=== PATIENT | male | born 1950 | race Caucasian/White ===

== ENCOUNTER 2017-11-15 19:02 | Inpatient (IN) ==
[2017-11-15] MEDS ORDERED: 0.9 % Sodium Chloride 500 ML IVC ONE (19:44)
--- NOTE | 2017-11-15 19:47 | Emergency Department Note ---
Disposition Clinical Impression: Chest pain Qualifiers: Chest pain type: unspecified Qualified Code(s): R07.9 - Chest pain, unspecified Congestive heart failure Qualifiers: Heart failure type: unspecified Heart failure chronicity: unspecified Qualified Code(s): I50.9 - Heart failure, unspecified Disposition: Admitted As Inpatient Condition: Fair Time of Disposition: 21:48 General Adult HPI - General Stated complaint: IVKAS Time Seen by Provider: 11/15/17 19:33 Source: patient Mode of arrival: ambulatory Limitations: no limitations Nursing Notes Reviewed: Yes Vital Signs Reviewed: Yes - History of Present Illness HPI Narrative: 67-year-old male with a history of paroxysmal A. fib, status post pacemaker, hypertension, diabetes, hyperlipidemia presents for evaluation of chest pain and shortness of breath. Patient states this started proximally 5 days ago with a cough. Patient noted that time he had pain that appeared to be in the right upper back. Patient states that since that time the pain is more centered in his chest and worse with deep inspiration. Patient's pain is primarily worse with inspiration and is noted to be in the right lower side of the chest. Patient notes subjective fevers. No rhinorrhea or congestion. Does have sick contacts at home with similar symptoms of respiratory illness. Patient denies any nausea vomiting or diaphoresis. Patient denies history of heart attacks. Patient states that he is on Xarelto. Pain Scale: 7 - Related Data Home Medications Medication Instructions Recorded Confirmed Aspirin [Lo-Dose Aspirin EC] 81 mg PO DAILY 09/01/17 11/15/17 Atorvastatin [Lipitor] 10 mg PO HS 09/01/17 11/15/17 Metoprolol Succinate 50 mg PO DAILY 09/01/17 11/15/17 Propafenone [Rhythmol] 150 mg PO BID 09/01/17 11/15/17 Rivaroxaban [Xarelto] 20 mg PO DAILY 09/01/17 11/15/17 amLODIPine [Norvasc] 5 mg PO DAILY 09/01/17 11/15/17 Allergies Allergy/AdvReac Type Severity Reaction Status Date / Time No Known Allergies Allergy Verified 11/15/17 19:20 All systems ED: reviewed and negative except as stated. Constitutional: Reports: fever Cardiovascular: Reports: chest pain Respiratory: Reports: cough, dyspnea. Denies: sputum production Gastrointestinal: Denies: abdominal pain, nausea, vomiting Past Medical History - Past Medical History Source: patient Medical history: Reports: atrial fibrillation, hyperlipidemia, hypertension, renal disease, other Surgical history: Reports: appendectomy Psychiatric history: Reports: no psych history - Social History Smoking Status: Former smoker Smokeless Tobacco Status: No Alcohol use: Reports: occasionally Drug use: Reports: none Physical Exam - General Limitations: no limitations General appearance: alert, in no apparent distress - Head Head exam: atraumatic, normocephalic, normal inspection - Eye Eye exam: Present: normal appearance, PERRL, EOMI - ENT ENT exam: normal exam, normal oropharynx, mucous membranes moist - Neck Neck exam: Present: normal inspection - Chest Chest inspection: Present: normal inspection, symmetric chest wall rise. Absent : tenderness, rash - Respiratory Respiratory exam: Present: normal lung sounds bilaterally. Absent: respiratory distress - Cardiovascular Cardiovascular exam: Present: regular rate, normal rhythm. Absent: systolic murmur - Abdominal Exam Abdominal exam: Present: soft, Non-Tender - Extremities Exam Extremities exam: Present: normal inspection. Absent: pedal edema - Back Exam Back exam: Present: normal inspection - Neurological Exam Neurological exam: Present: alert, oriented X3, CN II-XII intact - Skin Skin exam: Present: warm, dry, intact, normal color Course Course Narrative: Patient seen and examined. Patient appears to be in no acute distress. Patient denies any need for pain medication during initial ED evaluation. Patient will get a CT angiogram of the chest. Patient also get a basic EKG. Patient's most recent labs showed a GFR greater than 60. Patient will be fluid hydrated prior to CT. Disposition pending. - Reevaluation(s) Reevaluation #1: Patient does have an oxygen requirement and was 90% on RA. Time: 20:46 Reevaluation #2: Patient seen and examined. Patient appears to be in no acute distress. Patient does have a nausea requirement. Time: 21:56 Vital Signs Temperature 99.6 F 11/15/17 19:15 Pulse Rate 80 11/15/17 19:15 Respiratory Rate 18 11/15/17 19:15 Blood Pressure 124/78 11/15/17 19:15 O2 Sat by Pulse Oximetry 96 11/15/17 19:15 Temperature 98.7 F 11/16/17 03:43 Pulse Rate 76 11/16/17 03:43 Respiratory Rate 18 11/16/17 03:43 Blood Pressure 111/71 11/16/17 03:43 O2 Sat by Pulse Oximetry 94 11/16/17 03:43 Oxygen Delivery Oxygen Delivery Room Air Medical Decision Making - [facility] Narrative Medical decision making narrative: Patient presents with shortness of breath. Patient's been having respiratory complaints for the past 3-4 days. Patient's ED evaluation showed some mild congestive heart failure on CT. Patient's BNP however was not significantly elevated. Patient did have an EF of 50% in July of last year. Patient does have a leukocytosis which is not entirely explained. Patient no pneumonia on chest x-ray therefore antibiotics were not initiated. Given the fact of the patient does have an oxygen requirement the patient would likely need admitted with likely further cardiopulmonary evaluation. Patient will also get an influenza swab. Patient was not diuresed in the emergency department given history of chronic kidney disease and not significantly elevated BNP. - Lab Data Lab results reviewed: Yes I reviewed the patient's lab results. Result diagrams: 11/16/17 05:00 11/16/17 05:00 Lab Results 11/15/17 11/15/17 11/15/17 Range/Units 19:57 19:57 19:57 WBC 20.3 H (4.3-11.1) K/mcL RBC 4.65 (4.19-5.50) M/mcL Hgb 14.5 (12.9-16.9) g/dL Hct 43.2 (37.5-50.1) % MCV 92.9 (83.0-100.0) fL MCH 31.2 (28.0-33.3) pg MCHC 33.6 (31.6-35.5) g/dL RDW 13.2 (11.5-14.5) % Plt Count 304 (140-400) K/mcL MPV 9.8 (9.4-12.4) fL Immature Gran % 0.6 (0-4) % Seg Neutrophils % 80.6 % Lymphocytes % 9.9 % Monocytes % 8.0 % Eosinophils % 0.6 % Basophils % 0.3 % Neutrophils # 16.4 H (1.6-8.9) K/mcL Lymphocytes # 2.0 (0.6-4.6) K/mcL Monocytes # 1.6 H (0.0-1.3) K/mcL Eosinophils # 0.1 (0.0-0.6) K/mcL Basophils # 0.1 (0.0-0.2) K/mcL Sodium 134 L (136-145) mEq/L Potassium 4.5 (3.5-5.1) mEq/L Chloride 103 (98-107) mEq/L Carbon Dioxide 25 (23-29) mEq/L BUN 22 (8-23) mg/dL Creatinine 1.42 H (0.70-1.30) mg/dL Est GFR ( Amer) > 60 (> 60) Est GFR (Non-Af Amer) 50 L (> 60) BUN/Creatinine Ratio 15 (6-26) Glucose 112 H (70-105) mg/dL Calculated Osmolality 282 (280-300) Lactic Acid (0.5-2.2) mmol/L Calcium 9.5 (8.6-10.3) mg/dL Troponin I < 0.03 (< 0.04) ng/mL B-Natriuretic Peptide 95 (Less than 100) pg/mL 11/15/17 Range/Units 22:12 WBC (4.3-11.1) K/mcL RBC (4.19-5.50) M/mcL Hgb (12.9-16.9) g/dL Hct (37.5-50.1) % MCV (83.0-100.0) fL MCH (28.0-33.3) pg MCHC (31.6-35.5) g/dL RDW (11.5-14.5) % Plt Count (140-400) K/mcL MPV (9.4-12.4) fL Immature Gran % (0-4) % Seg Neutrophils % % Lymphocytes % % Monocytes % % Eosinophils % % Basophils % % Neutrophils # (1.6-8.9) K/mcL Lymphocytes # (0.6-4.6) K/mcL Monocytes # (0.0-1.3) K/mcL Eosinophils # (0.0-0.6) K/mcL Basophils # (0.0-0.2) K/mcL Sodium (136-145) mEq/L Potassium (3.5-5.1) mEq/L Chloride (98-107) mEq/L Carbon Dioxide (23-29) mEq/L BUN (8-23) mg/dL Creatinine (0.70-1.30) mg/dL Est GFR ( Amer) (> 60) Est GFR (Non-Af Amer) (> 60) BUN/Creatinine Ratio (6-26) Glucose (70-105) mg/dL Calculated Osmolality (280-300) Lactic Acid 1.6 (0.5-2.2) mmol/L Calcium (8.6-10.3) mg/dL Troponin I (< 0.04) ng/mL B-Natriuretic Peptide (Less than 100) pg/mL - Radiology Data Radiology results reviewed: Yes I reviewed the patient's radiology results. Chest CTA 11/15/17 19:34 IMPRESSION: 1. No pulmonary embolism. 2. Findings typical of congestive heart failure. 3. Mild right paratracheal lymph node enlargement is relatively low density, likely reactive, but nonspecific. 4. Calcific atherosclerosis aorta and coronary arteries. 5. Cardiomegaly. D/ / Hernando Bertrand / Hernando Bertrand Interpreting Provider: Hernando Bertrand - EKG Data EKG #1 EKG attestation: Yes I reviewed and interpreted this EKG. EKG shows normal: sinus rhythm Rate: normal Rhythm: NSR [place]/QRS: normal, LAHB/LAFB Voltage: c/w LVH Heart block present: 1st Degree T wave inversions noted in: v1, v2, v3 Interpretation: no acute changes, nonspecific ST-T wave changes S.B.A.R. - S.B.A.R. Situation: Demographics Background: Presenting Complaint Assessment: Vital Signs, Course and respsone to treatment, Patient/Family Expectation Recommendation: Barrier(s) to disposition, Recommendation based on pending studies, treatments, or consults S.B.A.R. Report Given to: Dr. Mendes S.B.A.RJorge Repor Time: 22:22 Attestation Statement - Attestation Attestation: I examined this patient and my medical decision-making was reviewed with the Resident Physician. I agree with the documented findings, disposition and treatment plan as described except to the extent set forth below. Findings consistent with possible heart failure. We will admit for diuresis and further evaluation of dyspnea. No evidence of pulmonary embolism.
[2017-11-15 20:10] LABS: Basophils # 0.1 K/mcL (0.0-0.2); Basophils % 0.3 %; Eosinophils # 0.1 K/mcL (0.0-0.6); Eosinophils % 0.6 %; Hematocrit 43.2 % (37.5-50.1); Hemoglobin 14.5 g/dL (12.9-16.9); Immature Granulocytes % 0.6 % (0-4); Lymphocytes % 9.9 %; Mean Corpuscular HGB Conc 33.6 g/dL (31.6-35.5); Mean Corpuscular Hemoglobin 31.2 pg (28.0-33.3); Mean Corpuscular Volume 92.9 fL (83.0-100.0); Mean Platelet Volume 9.8 fL (9.4-12.4); Monocytes # 1.6 K/mcL (0.0-1.3); Neutrophils # 16.4 K/mcL (1.6-8.9); Platelet Count 304 K/mcL (140-400); Red Blood Count 4.65 M/mcL (4.19-5.50); Red Cell Distribution Width 13.2 % (11.5-14.5); Segmented Neutrophils % 80.6 %
[2017-11-15 20:31] LABS: BUN/Creatinine Ratio 15 (6-26); Blood Urea Nitrogen 22 mg/dL (8-23); Calcium 9.5 mg/dL (8.6-10.3); Carbon Dioxide 25 mEq/L (23-29); Chloride 103 mEq/L (98-107); Glucose 112 mg/dL (70-105); Osmolality,Calculated 282 (280-300); Potassium 4.5 mEq/L (3.5-5.1); Sodium 134 mEq/L (136-145); eGFR For African Americans > 60 (> 60); eGFR For Non-African Americans 50 (> 60)
[2017-11-15 20:38] LABS: Troponin I < 0.03 ng/mL (< 0.04)
[2017-11-15] MEDS ORDERED: Naloxone 0.4 MG/ML INJ IVP PRN (23:47)
[2017-11-15] MEDS ORDERED: Ondansetron 4 MG/2 ML VIAL IVP PRN (23:47)
[2017-11-15] MEDS ORDERED: Acetaminophen 325 MG TABLET PO PRN (23:47)
[2017-11-15] MEDS ORDERED: *HR* Promethazine 25 MG/ML VIAL IVP PRN (23:47)
--- NOTE | 2017-11-15 23:53 | Internal Med History&Physical ---
Date of Encounter: 11/15/17 Time of Encounter: 22:30 Internal Medicine - H&P: HPI Chief complaint: SOB Admitted From: Emergency Dept Plans for Post Hospital Care: Home History of present illness: Mr. Reyna is a 67 year old male with known past medical history of hypertension , paroxysmal little fibrillation, DJD, hyperlipidemia, and CKD stage III who had a pacemaker placement in August 2017 presented to ER with 2-3 days h/o cough with yellowish expectoration and worsening SOB since this morning. He does c/o Epigatsric and b/l chest wall pain associated with SOB and cough. He denied any pedal edema / leg swelling. He does have mild orthopnea and PND. Pt was hypoxic in the ER Spo2 in 80s's required 2 lit O2. Past Med Surg Social Fam HX - Past Medical History Medical history: atrial fibrillation, hyperlipidemia, hypertension, renal disease, other Psychiatric history: no psych history - Past Surgical History Surgical History: appendectomy - Social History Smoking Status: Former smoker Smokeless Tobacco Status: No Alcohol use: occasionally Drug use: none - Family History Mother Living Status: Hx Family Cardiac Disorders: Yes (afib) Hx Family Neurologic Disorders: Yes Father Living Status: Hx Family Cardiac Disorders: Yes (CABG) Hx Family Cancer: Yes (colon) Grandfather Cause of : Heart Attack Hx Family Cardiac Disorders: Yes Internal Medicine - H&P: Meds Aspirin [Lo-Dose Aspirin EC] 81 mg PO DAILY 09/01/17 [History] Atorvastatin [Lipitor] 10 mg PO HS 09/01/17 [History] Metoprolol Succinate 50 mg PO DAILY 09/01/17 [History] Propafenone [Rhythmol] 150 mg PO BID 09/01/17 [History] Rivaroxaban [Xarelto] 20 mg PO DAILY 09/01/17 [History] amLODIPine [Norvasc] 5 mg PO DAILY 09/01/17 [History] 3 Allergy/AdvReac Type Severity Reaction Status Date / Time No Known Allergies Allergy Verified 11/15/17 19:20 All Systems PM: A 10-system review of systems was performed and is negative for pertinent findings except as documented above in the HPI. Review of systems: All the systems are reviewed everything is benign except the systems and symptoms I mentioned in the history of present illness - Constitutional Vitals: Temp Pulse Resp BP Pulse Ox 99.6 F 86 20 110/86 94 11/15/17 19:15 11/15/17 23:01 11/15/17 23:40 11/15/17 23:40 11/15/17 23:01 General appearance: Present: mild distress, A&O X 3, no acute distress, answers questions appropriately - Head Head exam: Present: atraumatic, normal inspection - Neck Neck exam general surgery: Present: supple - Respiratory Respiratory exam: Present: decreased breath sounds, wheezes (moderate). Absent : rales, respiratory distress, rhonchi - Cardiovascular Cardiovascular exam: Present: RRR, +S1, +S2 - GI/Abdominal GI/Abdominal exam: Present: normal bowel sounds, soft. Absent: rebound, rigid, tenderness - Extremities Exam Extremities exam: Absent: calf tenderness, pedal edema, tenderness - Back Exam Back exam: Absent: CVA tenderness (L), CVA tenderness (R) - Psychiatric Psychiatric exam: Present: anxious - Skin Skin exam: Absent: rash Internal Med - H&P Results - Labs CBC & Chem 7: 11/15/17 19:57 11/15/17 19:57 - Assessment and plan (1) Systolic CHF, acute on chronic Current Visit: Yes Status: Acute Assessment and plan: Admit the pt into Tele His symptoms are consistent with mild CHF exacerbation as well as bronchitis induced mild COPD exacerbation Reviewed 2 D Echo from 07/31 showed LVEF 50% Unable to give Lasix tonight since he recieved IV contrast through CTA of Chest.. He is known CKD-3 pt too will give Lasix as needed tonight Check Cr in AM, if it stays stable will start him on Lasix in AM Reviewed CXR showed mild vascular congestion CTA of chest - no PE, acute CHF changes noticed (2) Acute respiratory failure with hypoxia Current Visit: Yes Status: Acute Assessment and plan: Cont duoneb + Systemic Steroids + o2 Need home O2 eval before he goes home (3) Bronchitis Current Visit: Yes Status: Acute Assessment and plan: Mostly bacterial started him on Rocephin ordered Resp viral panel will check sputum cx (4) COPD exacerbation Current Visit: Yes Status: Acute Assessment and plan: He is a former smoker and he does have moderate wheezing he may get benefit with low dose steroids started tay on IV steroids Duoneb + O2 (5) CKD (chronic kidney disease) stage 3, GFR 30-59 ml/min Current Visit: Yes Status: Acute Assessment and plan: Stable Cr (6) HTN (hypertension) Current Visit: Yes Status: Acute Assessment and plan: resumed home meds Qualifiers: Hypertension type: essential hypertension Qualified Code(s): I10 - Essential (primary) hypertension (7) PAF (paroxysmal atrial fibrillation) Current Visit: No Status: Acute Assessment and plan: rate controlled cont Xarelto for anti coag (8) S/P cardiac pacemaker procedure Current Visit: No Status: Acute - Time Spent With Patient Total time spent is greater than 50% in coordination of care (as documented) at patient's floor/unit and/or counseling patient:
[2017-11-16] MEDS: cefTRIAXone 1,000 MG in Water for inj. (sterile) 20 ML 10 ML IVP SCH ×2 (00:31→10:14)
[2017-11-16] MEDS: MethylPREDNISolone 40 MG/ML VIAL IVP SCH ×3 (00:32→20:09)
[2017-11-16] MEDS: *HR* HYDROcodone/Acet 5/325 mg TABLET PO PRN ×2 (00:37→10:13)
[2017-11-16] MEDS: Ipratropium/Albuterol Neb 3 ML IH SCH ×7 (01:01→23:51)
[2017-11-16 05:21] LABS: Basophils % 0.2 %; Hematocrit 39.7 % (37.5-50.1); Hemoglobin 13.4 g/dL (12.9-16.9); Immature Granulocytes % 0.6 % (0-4); Lymphocytes # 1.4 K/mcL (0.6-4.6); Lymphocytes % 5.4 %; Mean Corpuscular HGB Conc 33.8 g/dL (31.6-35.5); Mean Corpuscular Hemoglobin 30.8 pg (28.0-33.3); Mean Corpuscular Volume 91.3 fL (83.0-100.0); Mean Platelet Volume 9.8 fL (9.4-12.4); Monocytes % 4.2 %; Neutrophils # 22.4 K/mcL (1.6-8.9); Platelet Count 274 K/mcL (140-400); Red Blood Count 4.35 M/mcL (4.19-5.50); Red Cell Distribution Width 13.3 % (11.5-14.5); Segmented Neutrophils % 89.6 %
[2017-11-16 05:26] LABS: Basophils # 0.1 K/mcL (0.0-0.2); Monocytes # 1.1 K/mcL (0.0-1.3)
[2017-11-16 05:43] LABS: Troponin I 0.03 ng/mL (< 0.04)
[2017-11-16 05:44] LABS: Calcium 9.2 mg/dL (8.6-10.3); Chol/HDL Ratio 3.5 (0-4.9); Magnesium 1.8 mg/dL (1.6-2.6); Potassium 4.9 mEq/L (3.5-5.1)
[2017-11-16 05:56] LABS: Platelet Estimate Normal (Normal)
[2017-11-16 05:57] LABS: Toxic Granulation Present (Not Present); Toxic Vacuolation Present (Not Present)
[2017-11-16] MEDS: amLODIPine 5 MG TABLET PO SCH (10:13)
[2017-11-16] MEDS: *HR* Rivaroxaban 10 MG TABLET PO SCH (10:14)
[2017-11-16] MEDS: Aspirin Enteric Coated 81 MG Tablet PO SCH (10:14)
[2017-11-16] MEDS: Metoprolol XL (24 HR) Succ 50 MG TAB.ER.24H PO SCH (10:14)
--- NOTE | 2017-11-16 12:40 | Internal Med Progress Note ---
Date of Encounter: 11/16/17 Time of Encounter: 12:38 - Assessment and plan (1) Acute respiratory failure with hypoxia Current Visit: Yes Status: Acute Assessment and plan: Acute hypoxic respiratory failure secondary to acute COPD she exacerbation due to possible acute bronchitis versus early community acquired pneumonia in combination with acute systolic CHF exacerbation Blood cell count is coming up, possibly related to steroids Switch to Levaquin Legionella test IV Solu-Medrol, duo nebs and oxygen therapy Echocardiogram pending Cont duoneb (2) PAF (paroxysmal atrial fibrillation) Current Visit: No Status: Acute Assessment and plan: rate controlled on metoprolol cont Xarelto for anti coag (3) S/P cardiac pacemaker procedure Current Visit: No Status: Acute (4) Bronchitis Current Visit: Yes Status: Acute Assessment and plan: Mostly bacterial Stop Rocephin and start Levaquin Resp viral panel, ordered but not done yet Send Legionella test sputum cx (5) COPD exacerbation Current Visit: Yes Status: Acute Assessment and plan: He is a former smoker and he does have moderate wheezing IV Solu-Medrol Duoneb + O2 (6) Systolic CHF, acute on chronic Current Visit: Yes Status: Acute Assessment and plan: Admit the pt into Tele His symptoms are consistent with mild CHF exacerbation as well as bronchitis induced mild COPD exacerbation Reviewed 2 D Echo from 07/31 showed LVEF 50% Start IV Lasix CXR showed mild vascular congestion CTA of chest - no PE, acute CHF changes noticed, described patchy alveolar densities (7) CKD (chronic kidney disease) stage 3, GFR 30-59 ml/min Current Visit: Yes Status: Acute Assessment and plan: Stable Cr (8) HTN (hypertension) Current Visit: Yes Status: Acute Assessment and plan: resumed home meds Qualifiers: Hypertension type: essential hypertension Qualified Code(s): I10 - Essential (primary) hypertension - Time Spent With Patient Total time spent is greater than 50% in coordination of care (as documented) at patient's floor/unit and/or counseling patient: - Subjective Interval history: Still feeling short of breath, denies any chest pain although than when he coughs, had a fever of 99.7 last night, denies any abdominal pain, no dysuria or diarrhea - Constitutional Vitals: Temp Pulse Resp BP Pulse Ox 99.2 F 80 16 124/71 92 11/16/17 10:53 11/16/17 10:53 11/16/17 10:53 11/16/17 10:53 11/16/17 10:53 General appearance: Present: mild distress, A&O X 3, no acute distress, answers questions appropriately - Head Head exam: Present: atraumatic, normocephalic - Eye Eye exam: Present: PERRL, conjuntiva pink, sclera anicteric Pupils: Present: PERRL - Neck Neck exam general surgery: Present: supple, trachea midline. Absent: lymphadenopathy - Respiratory Respiratory exam: Present: CTAB, wheezes (Minimal diffuse wheezing). Absent: accessory muscle use, rales, rhonchi - Cardiovascular Cardiovascular exam: Present: RRR, +S1, +S2. Absent: diastolic murmur, gallop, rubs, systolic murmur - GI/Abdominal GI/Abdominal exam: Present: normal bowel sounds, soft, no peritoneal signs. Absent: distended, tenderness - Extremities Exam Extremities exam: Present: warm, radial pulses palpable and symmetrical. Absent : calf tenderness, cyanotic, pedal edema - Neurological Exam Neurological exam: Present: CN II-XII intact, oriented X3, no focal deficits. Absent: pronater drift, facial droop, speech deficit - Skin Skin exam: Present: dry, intact Internal Medicine: Result - Labs CBC & Chem 7: 11/16/17 05:00 11/16/17 05:00 Labs: Short CBC 11/16/17 Range/Units 05:00 WBC 25.0 H (4.3-11.1) K/mcL Hgb 13.4 (12.9-16.9) g/dL Hct 39.7 (37.5-50.1) % Plt Count 274 (140-400) K/mcL Neutrophils # 22.4 H (1.6-8.9) K/mcL BMP 11/16/17 05:00 Sodium 134 L Potassium 4.9 Chloride 103 Carbon Dioxide 21 L BUN 24 H Creatinine 1.44 H Glucose 151 H Calcium 9.2 Cardiac Enzymes 11/16/17 11/16/17 Range/Units 05:00 09:48 Troponin I 0.03 < 0.03 (< 0.04) ng/mL Consult Discharge Plan - Plan Referrals: Hardik Lantigua MD [Primary Care Provider] -
[2017-11-16] MEDS: Levofloxacin 750 MG/150 ML 750 MG/150 ML BAG IVPB SCH (15:57)
[2017-11-16] MEDS: Furosemide 20 MG/2 ML VIAL IVP SCH ×2 (15:58)
[2017-11-16 19:35] LABS: Adenovirus Not Detected (Not Detect); Bordetella Pertussis Not Detected (Not Detect); Chlamydophila pneumoniae Not Detected (Not Detect); Coronavirus 229E Not Detected (Not Detect); Coronavirus HKU1 Not Detected (Not Detect); Coronavirus NL63 Not Detected (Not Detect); Coronavirus OC43 Not Detected (Not Detect); Human Metapneumovirus Not Detected (Not Detect); Human Rhinovirus/Enterovirus Not Detected (Not Detect); Influenza A Subtype 2009 H1 Not Detected (Not Detect); Influenza A Untypeable Not Detected (Not Detect); Influenza B Not Detected (Not Detect); Mycoplasma pneumoniae Not Detected (Not Detect); Parainfluenza Virus 1 Not Detected (Not Detect); Parainfluenza Virus 2 Not Detected (Not Detect); Parainfluenza Virus 3 Not Detected (Not Detect); Parainfluenza Virus 4 Not Detected (Not Detect); Respiratory Syncytial Virus Not Detected (Not Detect)
--- NOTE | 2017-11-16 19:59 | Electrocardiograph Report ---
[address] [place], [place] [address] Test Date: 2017-11-15 Pat Name: Roc Reyna Department: 102 Room: [facility] Gender: M [employer]: : 1950 Requested By: Levar Mcghee Order Number: [id number] Reading MD: Kenneth Villanueva Measurements Intervals [place] Rate: 80 P: 70 [place]: 218 QRS: -64 QRSD: 182 T: 63 QT: 421 QTc: 457 Interpretive Statements SINUS RHYTHM WITH FIRST DEGREE AV BLOCK RIGHT BUNDLE BRANCH BLOCK LEFT ANTERIOR FASCICULAR BLOCK LEFT VENTRICULAR HYPERTROPHY AND ST-T CHANGE = Electronically Signed On 11-16-2017 19:57:24 EDT by Kenneth Villanueva
[2017-11-17] MEDS: Ipratropium/Albuterol Neb 3 ML IH SCH ×5 (04:32→23:00)
[2017-11-17 06:57] LABS: Calcium 9.4 mg/dL (8.6-10.3); Potassium 4.3 mEq/L (3.5-5.1)
[2017-11-17 08:01] LABS: Mean Platelet Volume 10.6 fL (9.4-12.4)
[2017-11-17 08:02] LABS: Hematocrit 38.6 % (37.5-50.1); Hemoglobin 12.8 g/dL (12.9-16.9); Mean Corpuscular HGB Conc 33.2 g/dL (31.6-35.5); Mean Corpuscular Hemoglobin 30.7 pg (28.0-33.3); Mean Corpuscular Volume 92.6 fL (83.0-100.0); Platelet Count 301 K/mcL (140-400); Red Blood Count 4.17 M/mcL (4.19-5.50); Red Cell Distribution Width 13.6 % (11.5-14.5)
[2017-11-17] MEDS: Furosemide 20 MG/2 ML VIAL IVP SCH ×2 (08:17→16:15)
[2017-11-17] MEDS: Aspirin Enteric Coated 81 MG Tablet PO SCH (08:17)
[2017-11-17] MEDS: MethylPREDNISolone 40 MG/ML VIAL IVP SCH (08:17)
[2017-11-17] MEDS: Levofloxacin 750 MG/150 ML 750 MG/150 ML BAG IVPB SCH (08:18)
[2017-11-17] MEDS: *HR* Rivaroxaban 10 MG TABLET PO SCH (08:18)
[2017-11-17] MEDS: amLODIPine 5 MG TABLET PO SCH (08:18)
[2017-11-17] MEDS: Metoprolol XL (24 HR) Succ 50 MG TAB.ER.24H PO SCH (08:18)
--- NOTE | 2017-11-17 13:21 | Internal Med Progress Note ---
<Channing Holt - Last Filed: 11/17/17 13:19> Date of Encounter: 11/17/17 Time of Encounter: 13:19 - Assessment and plan (1) Acute respiratory failure with hypoxia Current Visit: Yes Status: Acute Assessment and plan: 2nd to COPD/CHF exacerbation Continue supplemental oxygen, nebulizer treatment, steroids stable patient is not on home O2 (2) Systolic CHF, acute on chronic Current Visit: Yes Status: Acute Assessment and plan: Underwent CTA which showed findings of CHF bibasilar crackles echocardiogram shows: LVEF 60%. Normal right ventricular structure and function. Mild mitral regurgitation. Mild-moderate tricuspid regurgitation. Mild-moderate pulmonic regurgitation. No pulmonary hypertension. There is a small pericardial effusion present along the inferior and inferolateral lemus. There is no echocardiographic evidence of tamponade. A device lead was visualized in the right atrium and right ventricle. continue lasix 20mg IVP BID strict I/O BMP in AM. (3) PAF (paroxysmal atrial fibrillation) Current Visit: Yes Status: Acute Assessment and plan: Patient has history of PAF. He is on Rythmol, metoprolol and xeralto. This morning patient's heart rate was sustained at 130s and then resolve spontaneously. (4) Bronchitis Current Visit: Yes Status: Acute Assessment and plan: RIP negative reports some cough but nonproductive Preliminary blood cultures negative, Legionella antigen negative. Patient is on Levaquin and today's antibiotic day 3 (5) CKD (chronic kidney disease) stage 3, GFR 30-59 ml/min Current Visit: Yes Status: Acute Assessment and plan: Serum creatinine stable. Continue monitor. Total output recorded as 900 mL today. (6) COPD exacerbation Current Visit: Yes Status: Acute Assessment and plan: Continue steroids, nebulizers, antibiotics (7) HTN (hypertension) Current Visit: Yes Status: Chronic Assessment and plan: Controlled. Continue amlodipine. Qualifiers: Hypertension type: essential hypertension Qualified Code(s): I10 - Essential (primary) hypertension (8) S/P cardiac pacemaker procedure Current Visit: Yes Status: Acute - Subjective Interval history: This morning patient's heart rate was in 130s and A. fib RVR. She denied any symptoms of chest pain, shortness of breath while laying in bed. He reported exertional dyspnea when walking to the window. Patient has no other complaints. - Constitutional Vitals: Temp Pulse Resp BP Pulse Ox 98.4 F 84 18 129/76 93 11/17/17 10:27 11/17/17 10:27 11/17/17 10:27 11/17/17 10:27 11/17/17 10:27 General appearance: Present: mild distress, A&O X 3, no acute distress, answers questions appropriately - Other Additional findings: General: Pleasant without distress Heart: Irregularly irregular, tachycardic Lungs: Diminished, crackles bibasilar Abdomen: Soft nontender, nondistended positive bowel sounds Skin: warm and dry Extremities: Absent pedal edema, Neuro: Alert oriented 3 Vascular: Pedal and radial pulses 2 out of 4 Internal Medicine: Result - Labs CBC & Chem 7: 11/17/17 06:10 11/17/17 06:10 Labs: Short CBC 11/17/17 Range/Units 06:10 WBC 31.8 H* (4.3-11.1) K/mcL Hgb 12.8 L (12.9-16.9) g/dL Hct 38.6 (37.5-50.1) % Plt Count 301 (140-400) K/mcL BMP 11/17/17 06:10 Sodium 134 L Potassium 4.3 Chloride 103 Carbon Dioxide 20 L BUN 36 H Creatinine 1.55 H Glucose 176 H Calcium 9.4 - Impressions Impressions Echocardiogram 11/16/17 14:00 Impressions: LVEF 60%. Normal right ventricular structure and function. Mild mitral regurgitation. Mild-moderate tricuspid regurgitation. Mild-moderate pulmonic regurgitation. No pulmonary hypertension. There is a small pericardial effusion present along the inferior and inferolateral lemus. There is no echocardiographic evidence of tamponade. A device lead was visualized in the right atrium and right ventricle. Left Ventricular Wall Motion: Rest Echo Findings The apical anterior, mid anterior and basal anterior lemus were not visualized. All other wall segments showed normal motion. Findings: Study Quality * Technically adequate exam. ECG Findings * Normal sinus rhythm. Left Ventricle * LVEF 60%. * Normal LV chamber size, wall thickness and function. * Indeterminate diastolic function. Valsalva not performed. Right Ventricle * Normal right ventricular structure and function. Left Atrium * Normal left atrial size. Right Atrium * Normal right atrial size. Mitral Valve * Normal mitral valve structure. * No mitral stenosis. * Mild mitral regurgitation. Aortic Valve * No aortic regurgitation. * Aortic valve not well visualized. * No aortic stenosis. Tricuspid Valve * Normal tricuspid valve structure. * Mild-moderate tricuspid regurgitation. * Estimated RA pressure is 3 mmHg. * Estimated RVSP is 32 mmHg. * No pulmonary hypertension. Pulmonic Valve * Pulmonic valve is not well visualized. * No pulmonic stenosis. * Mild-moderate pulmonic regurgitation. Pulmonary Artery * Pulmonary artery not well visualized. Aorta * Normally sized aortic root. Pericardium * There is a small pericardial effusion present. * There is no echocardiographic evidence of tamponade. Device lead * A device lead was visualized in the right atrium and right ventricle. Interatrial Septum * No evidence of PFO by color Doppler. IVC * The IVC is not dilated, measuring 1.9cm. * Sniff not well obtained. Consult Discharge Plan - Plan Referrals: Hardik Lantigua MD [Primary Care Provider] - <Arnav Salazar - Last Filed: 11/17/17 17:25> Date of Encounter: 11/17/17 - Constitutional Vitals: Temp Pulse Resp BP Pulse Ox 98.4 F 84 18 129/76 93 11/17/17 10:27 11/17/17 10:27 11/17/17 10:27 11/17/17 10:27 11/17/17 10:27 Internal Medicine: Result - Labs CBC & Chem 7: 11/17/17 06:10 11/17/17 06:10 Labs: Short CBC 11/17/17 Range/Units 06:10 WBC 31.8 H* (4.3-11.1) K/mcL Hgb 12.8 L (12.9-16.9) g/dL Hct 38.6 (37.5-50.1) % Plt Count 301 (140-400) K/mcL BMP 11/17/17 06:10 Sodium 134 L Potassium 4.3 Chloride 103 Carbon Dioxide 20 L BUN 36 H Creatinine 1.55 H Glucose 176 H Calcium 9.4 - Attending Attestation I performed an independent interview and exam of this patient. I agree with the findings, assessment, and plan of Dr. Holt, internal medicine resident. Allergy input noted and appreciated. There is a concern for pericarditis and colchicine has been started. She otherwise is looking good. His vitals remained stable. He is satting 93% on room air. Presently he is denying any complaints. States his breathing has improved. Pt did have atrial fibrillation with rapid ventricular response today and cardiology has been addressing this. Toprol has been increased. All else as outlined above. My input is reflected in his note.
--- NOTE | 2017-11-17 13:51 | Cardiology Consult Note ---
<Petra Edgar Thelma - Last Filed: 11/17/17 14:19> Date of Encounter: 11/17/17 Time of Encounter: 13:30 Assessment and Plan (1) PAF (paroxysmal atrial fibrillation) Current Visit: Yes Status: Acute Episodes of RVR in the setting of bronchitis; on steriods and nebs which are likely provoking. Hx of PAF, anticoagulated on Xarelto. Has been taking Rythmol 150 mg BID vs TID--patient states he has been taking this way for "years." PAF noted overnight. Discussed with Dr. El, will increase Toprol XL to 100 mg daily and have patient follow-up with EP regarding Rythmol recommendations given hx of conduction disease. (2) S/P cardiac pacemaker procedure Current Visit: Yes Status: Acute (3) Chest pain Current Visit: Yes Status: Acute Reports atypical chest pain. Troponin negative x3. Recent negative nuclear stress test 07/2017. Symptoms consistent with pericarditis. TTE shows small inferior and inferolateral pericardial effusion. Hx of CKD, will not use NSAID, start colchine 0.6 mg now, then BID. CrCl= 48.21 using LBW of 73.70 kg. Qualifiers: Chest pain type: precordial pain Qualified Code(s): R07.2 - Precordial pain Discussion w patient/family: The assessment and plan as outlined above was discussed with the patient and/or family members who expressed understanding and agreement. All questions were answered. Thank you for involving us in the care of your patient. Please call with any questions. The patient will be discussed and reviewed with Dr. El; changes to be made accordingly. History of Present Illness Consult date: 11/17/17 Requesting physician: Channing Holt Consult reason: PAF Chief complaint: Shortness of breath History of present illness: Mr. Reyna is a 67 year old male with PMHx significant for HTN, RBBB/left fasicular block s/p PPM, and PAF who presented to the ED with complaints of shortness of breath. He recently underwent PPM implant in 2017. He reports midsternal chest discomfort s/p procedure that has not yet resolved. Pain is non -radiating and not related to activity or exertion. He reports he can improve pain by sitting upright in bed. He notes exertional shortness of breath for "years." Recent CV testin TTE: LVEF 50-55% 07/2017 Regadenoson nuclear: negative for ischemia or infarct, gated EF=59% 08/2017 Implant PPM 11/2017 TTE: LVEF 60%, mild MR, mild-moderate TR/NH, no PH; small pericardial effusion along the inferior and inferolateral wall Past Med Surg Social Fam HX - Past Medical History Attestation: Yes The following information was validated with the patient. Source: patient Medical history: atrial fibrillation, hyperlipidemia, hypertension, renal disease, other Psychiatric history: no psych history - Past Surgical History Surgical History: appendectomy - Social History Smoking Status: Former smoker Smokeless Tobacco Status: No Alcohol use: occasionally Drug use: none - Family History Mother Living Status: Age at : 90 Hx Family Cardiac Disorders: Yes (afib) Hx Family Neurologic Disorders: Yes Father Living Status: Age at : 77 Cause of : colon cancer Hx Family Cardiac Disorders: Yes (CABG) Hx Family Cancer: Yes (colon) Grandfather Cause of : Heart Attack Hx Family Cardiac Disorders: Yes Medications and Allergies Aspirin [Lo-Dose Aspirin EC] 81 mg PO DAILY 09/01/17 [History] Atorvastatin [Lipitor] 10 mg PO HS 09/01/17 [History] Metoprolol Succinate 50 mg PO DAILY 09/01/17 [History] Propafenone [Rhythmol] 150 mg PO BID 09/01/17 [History] Rivaroxaban [Xarelto] 20 mg PO DAILY 09/01/17 [History] amLODIPine [Norvasc] 5 mg PO DAILY 09/01/17 [History] 3 Allergy/AdvReac Type Severity Reaction Status Date / Time No Known Allergies Allergy Verified 11/15/17 19:20 All Systems Review: The remainder of the systems were reviewed and are negative - Cardiovascular Cardiovascular: as per HPI Physical Examination Vital Signs, Last 4 Hours Temp Pulse Resp BP Pulse Ox 11/17/17 10:27 98.4 F 84 18 129/76 93 General: Conversant, No Apparent Distress HEENT: Atraumatic, Mucus Membranes Moist Cardiac: Reg Rate and Rhythm, Normal S1 and S2 Lungs: Normal Breath Sounds Neuro: Alert and responsive Abdomen: Soft Skin: No rashes noted on visualized skin Musculoskeletal: No Chest Wall Tenderness Extremities: No Edema, Normal Pulses Results 11/17/17 06:10 11/17/17 06:10 Lab Results 11/17/17 11/17/17 06:10 06:10 WBC 31.8 H* Hgb 12.8 L Hct 38.6 Plt Count 301 Sodium 134 L Potassium 4.3 Chloride 103 Carbon Dioxide 20 L BUN 36 H Creatinine 1.55 H Glucose 176 H Calcium 9.4 Active Medications Acetaminophen (Tylenol) 650 mg PO Q6H PRN PRN Reason: Mild Pain/Fever Stop: 05/17/18 23:48 Hydrocodone Bitart/Acetaminophen ([place] 5-325 Mg) 1 tab PO Q6H PRN PRN Reason: Moderate Pain Stop: 05/17/18 23:48 Last Admin: 11/16/17 10:13 Dose: 1 tab Albuterol/Ipratropium (Duoneb) 3 ml IH [id number] TATUM Stop: 05/18/18 00:01 Last Admin: 11/17/17 10:57 Dose: Not Given Amlodipine Besylate (Norvasc) 5 mg PO DAILY TATUM PRN Reason: Protocol Stop: 05/18/18 09:01 Last Admin: 11/17/17 08:18 Dose: 5 mg Aspirin (Aspirin Ec) 81 mg PO DAILY TATUM Stop: 05/18/18 09:01 Last Admin: 11/17/17 08:17 Dose: 81 mg Atorvastatin Calcium (Lipitor) 10 mg PO HS TATUM Stop: 05/18/18 21:01 Last Admin: 11/16/17 20:08 Dose: 10 mg Furosemide (Lasix) 20 mg IVP BIDDIURETIC TATUM Stop: 05/18/18 12:46 Last Admin: 11/17/17 08:17 Dose: 20 mg Levofloxacin/Dextrose (Levaquin Premix 750mg/150 Ml) 750 mg in 150 mls @ 100 mls/hr IVPB DAILY TATUM PRN Reason: Protocol Stop: 05/18/18 14:01 Last Infusion: 11/17/17 10:09 Dose: Infused Metoprolol Succinate (Toprol Xl) 100 mg PO DAILY [facility] Stop: 05/20/18 09:01 Naloxone HCl (Narcan) 0.4 mg IVP Q2MIN PRN PRN Reason: SEE COMMENTS Stop: 05/17/18 23:48 Ondansetron HCl (Zofran) 4 mg IVP Q8H PRN PRN Reason: Nausea And Vomiting Stop: 05/17/18 23:48 Prednisone (Prednisone) 40 mg PO DAILY [facility] Stop: 05/20/18 09:01 Promethazine HCl (Phenergan) 12.5 mg IVP Q6H PRN PRN Reason: Nausea And Vomiting Stop: 05/17/18 23:48 Propafenone HCl (Rhythmol) 150 mg PO BID TATUM Stop: 05/18/18 09:01 Last Admin: 11/17/17 08:18 Dose: 150 mg Rivaroxaban (Xarelto) 20 mg PO DAILY TATUM Stop: 05/18/18 09:01 Last Admin: 11/17/17 08:18 Dose: 20 mg - Imaging and Cardiology Other Results: 12 hour tele: avg DP=[id number], PAF noted. - EKG Interpretation EKG results cardiology: personally reviewed (1) Consult Discharge Plan - Plan Referrals: Hardik Lantigua MD [Primary Care Provider] - <Aquiles El - Last Filed: 11/17/17 15:51> Date of Encounter: 11/17/17 - Attending Attestation I have personally performed a face to face evaluation on this patient. I have reviewed and agree with the care plan. History and Exam by me shows: 67-year-old male status post permanent pacemaker August 2017 presents after upper respiratory infection complaining of pleuritic type chest pain. Pericardial rub evident on auscultation. Preserved ejection fraction on echocardiogram with pericardial effusion focal likely secondary to focal myopericarditis. Agree with colchicine. No features of tamponade on echocardiogram. Titrate Toprol for A. fib control. Continue previous dose of Rythmol Assessment and Plan Discussion w patient/family: The assessment and plan as outlined above was discussed with the patient and/or family members who expressed understanding and agreement. All questions were answered. Thank you for involving us in the care of your patient. Please call with any questions. History of Present Illness History of present illness: Mr. Reyna is a 67 year old male All Systems Review: The remainder of the systems were reviewed and are negative Results 11/17/17 06:10 11/17/17 06:10 Lab Results 11/17/17 11/17/17 06:10 06:10 WBC 31.8 H* Hgb 12.8 L Hct 38.6 Plt Count 301 Sodium 134 L Potassium 4.3 Chloride 103 Carbon Dioxide 20 L BUN 36 H Creatinine 1.55 H Glucose 176 H Calcium 9.4
[2017-11-17] MEDS: Colchicine 0.6 MG TABLET PO SCH ×2 (16:15→22:27)
[2017-11-18 02:54] LABS: Calcium 9.4 mg/dL (8.6-10.3); Potassium 4.6 mEq/L (3.5-5.1)
[2017-11-18 03:06] LABS: Basophils % 0.1 %; Hematocrit 37.2 % (37.5-50.1); Hemoglobin 12.5 g/dL (12.9-16.9); Immature Granulocytes % 1.1 % (0-4); Lymphocytes # 1.6 K/mcL (0.6-4.6); Lymphocytes % 5.4 %; Mean Corpuscular HGB Conc 33.6 g/dL (31.6-35.5); Mean Corpuscular Hemoglobin 31.3 pg (28.0-33.3); Mean Corpuscular Volume 93.2 fL (83.0-100.0); Mean Platelet Volume 10.4 fL (9.4-12.4); Monocytes # 2.1 K/mcL (0.0-1.3); Neutrophils # 26.1 K/mcL (1.6-8.9); Platelet Count 339 K/mcL (140-400); Red Blood Count 3.99 M/mcL (4.19-5.50); Red Cell Distribution Width 13.5 % (11.5-14.5); Segmented Neutrophils % 86.4 %
[2017-11-18] MEDS: Ipratropium/Albuterol Neb 3 ML IH SCH ×4 (03:19→16:05)
[2017-11-18 03:45] LABS: Platelet Estimate Normal (Normal)
[2017-11-18] MEDS: Colchicine 0.6 MG TABLET PO SCH (07:56)
[2017-11-18] MEDS: Levofloxacin 750 MG/150 ML 750 MG/150 ML BAG IVPB SCH (07:56)
[2017-11-18] MEDS: Aspirin Enteric Coated 81 MG Tablet PO SCH (07:56)
[2017-11-18] MEDS: amLODIPine 5 MG TABLET PO SCH (07:56)
[2017-11-18] MEDS: *HR* Rivaroxaban 10 MG TABLET PO SCH (07:56)
[2017-11-18] MEDS: Furosemide 20 MG/2 ML VIAL IVP SCH (07:57)
[2017-11-18] MEDS ORDERED: Metoprolol XL (24 HR) Succ 50 MG TAB.ER.24H PO SCH (09:00)
[2017-11-18] MEDS ORDERED: predniSONE 20 MG TABLET PO SCH (09:00)
--- NOTE | 2017-11-18 09:27 | Internal Med Progress Note ---
Date of Encounter: 11/18/17 Time of Encounter: 09:10 - Assessment and plan (1) Pericarditis Current Visit: Yes Status: Acute Assessment and plan: Mild, acute pericarditis seen on echocardiogram last night Patient started on colchicine He is receiving prednisone already Likely contributory towards patient tachycardia Inflammation possibly leading to patient's feeling of impending cardiogenic syncope Continue Colchicine Continue redness on Cardiology following and appreciate recommendations for continued management/ care Qualifiers: Pericarditis type: idiopathic Chronicity: acute Qualified Code(s): I30.0 - Acute nonspecific idiopathic pericarditis (2) Acute respiratory failure with hypoxia Current Visit: Yes Status: Resolved Assessment and plan: 2nd to COPD/CHF exacerbation stable Patient no longer requiring supplemental oxygen Continue supplemental oxygen as needed, wean as tolerated Nebulizer treatment with DuoNeb's Steroids with prednisone (3) Bronchitis Current Visit: Yes Status: Acute Assessment and plan: RIP negative reports some cough but nonproductive Preliminary blood cultures negative, Legionella antigen negative Patient is on Levaquin and today's antibiotic day 4 (4) COPD exacerbation Current Visit: Yes Status: Acute Assessment and plan: Plan as above (5) Systolic CHF, acute on chronic Current Visit: Yes Status: Acute Assessment and plan: Underwent CTA which showed findings of CHF bibasilar crackles difficult to auscultate today echocardiogram shows EF 60% with mild to moderate tricuspid and pulmonic regurg and a small pericardial effusion without evidence type not continue lasix 20mg IVP BID strict I/O BMP in AM (6) CKD (chronic kidney disease) stage 3, GFR 30-59 ml/min Current Visit: Yes Status: Acute Assessment and plan: Serum creatinine stable Total output recorded as 2800 mL yesterday Continue monitor (7) HTN (hypertension) Current Visit: Yes Status: Chronic Assessment and plan: Controlled Continue amlodipine Qualifiers: Hypertension type: essential hypertension Qualified Code(s): I10 - Essential (primary) hypertension (8) PAF (paroxysmal atrial fibrillation) Current Visit: Yes Status: Acute Assessment and plan: Patient has history of PAF Heart rate has been controlled in the 80s, for the most part He is on Rythmol, metoprolol and xeralto Continue to monitor on telemetry (9) S/P cardiac pacemaker procedure Current Visit: Yes Status: Acute - Subjective Interval history: Patient doing very well this morning. He does report that for the 15-30 minutes prior to me entering the room he was feeling impending feeling of syncope. He denies lightheadedness, dizziness, presyncope but states this feeling comes on when he is about to suddenly blacked out due to his heart. His pacemaker previously controlled this he had not had the feeling in a while, but feels now. Besides this he has no concerns/complaints, denies chest pain, chest pressure, palpitations, shortness of breath, fever/chills, anorexia, nausea/vomiting. - Constitutional Vitals: Temp Pulse Resp BP Pulse Ox 98.5 F 94 16 114/78 95 11/18/17 06:40 11/18/17 06:40 11/18/17 06:40 11/18/17 06:40 11/18/17 06:40 General appearance: Present: A&O X 3, no acute distress, answers questions appropriately Exam: General: Cooperative, pleasant, no acute distress, alert and oriented 3, answers questions appropriately, obese HEENT: Normocephalic, atraumatic, neck supple, trachea midline, Conjunctiva pink , sclera anicteric, oral mucosa moist Respiratory: No accessory muscle usage, clear to auscultation bilaterally, no wheezes/rhonchi/rales appreciated Cardiovascular: Regular rate and rhythm, S1 and S2 present, no murmurs/rubs/ gallops/clicks appreciated GI/abdominal: Nondistended, nontender, soft, normal bowel sounds, no peritoneal signs Extremities: No calf tenderness, no pedal edema appreciated, warm, lower extremity pulses palpable and symmetrical Neurological: Alert and oriented 3, no facial droop, no focal deficits Skin: Dry, intact, normal color Internal Medicine: Result - Labs CBC & Chem 7: 11/18/17 01:53 11/18/17 01:53 Labs: Short CBC 11/18/17 Range/Units 01:53 WBC 30.2 H* (4.3-11.1) K/mcL Hgb 12.5 L (12.9-16.9) g/dL Hct 37.2 L (37.5-50.1) % Plt Count 339 (140-400) K/mcL Neutrophils # 26.1 H (1.6-8.9) K/mcL BMP 11/18/17 01:53 Sodium 135 L Potassium 4.6 Chloride 105 Carbon Dioxide 21 L BUN 41 H Creatinine 1.46 H Glucose 128 H Calcium 9.4 Consult Discharge Plan - Plan Referrals: Hardik Lantigua MD [Primary Care Provider] -
--- NOTE | 2017-11-18 13:39 | Cardiology Progress Note ---
Date of Encounter: 11/18/17 Time of Encounter: 13:00 Assessment and Plan (1) Chest pain Current Visit: Yes Status: Acute Per cardiology: -Reports atypical chest pain. Troponin negative x3. -Recent negative nuclear stress test 07/2017. -Symptoms consistent with pericarditis. TTE shows small inferior and inferolateral pericardial effusion. -States chest pain resoved now, states shortness of breath imrpovwed. -Hx of CKD, will not use NSAID, start colchine 0.6 mg now, then BID. CrCl= 48.21 using LBW of 73.70 kg. -Cardiology will sign off and will follow in outatient setting. Qualifiers: Chest pain type: precordial pain Qualified Code(s): R07.2 - Precordial pain (2) PAF (paroxysmal atrial fibrillation) Current Visit: Yes Status: Acute Per cardiology: -Episodes of RVR in the setting of bronchitis; on steriods and nebs which are likely provoking. -Hx of PAF, anticoagulated on Xarelto. -Has been taking Rythmol 150 mg BID vs TID--patient states he has been taking this way for "years." -Average HR previous 12 hours 77. -Discussed with Dr. El, will increase Toprol XL to 100 mg daily and have patient follow-up with EP regarding Rythmol recommendations given hx of conduction disease. (3) S/P cardiac pacemaker procedure Current Visit: Yes Status: Acute Per cardiology: -Recent pacemaker. Discussion w patient/family: The assessment and plan as outlined above was discussed with the patient and/or family members who expressed understanding and agreement. All questions were answered. Thank you for involving us in the care of your patient. Please call with any questions. Discussed and reviewed with Subjective Principal diagnosis: a.fib, pericarditis Interval history: Patient reports he feels much better today. Rigoberto chest pain, states shortness of breath much improved. Denies palpitations or fluttering. Objective Vital Signs, Last 4 Hours Temp Pulse Resp BP Pulse Ox 11/18/17 11:35 97.8 F 85 16 95/56 95 General: Conversant, No Apparent Distress HEENT: Atraumatic, Normocephaly, Mucus Membranes Moist Neck: No JVD, Normal carotid pulses Cardiac: Normal S1 and S2, No Murmur, Other (Irregularly irregular) Lungs: Normal Breath Sounds, No Wheeze, Rales, Rhonchi Neuro: Alert and responsive, No focal deficits noted Abdomen: Soft, Non-Tender Skin: No rashes noted on visualized skin Musculoskeletal: No Chest Wall Tenderness Extremities: No Clubbing, No Cyanosis, No Edema, Normal Pulses Results 11/18/17 01:53 11/18/17 01:53 Lab Results Active Medications Acetaminophen (Tylenol) 650 mg PO Q6H PRN PRN Reason: Mild Pain/Fever Stop: 05/17/18 23:48 Hydrocodone Bitart/Acetaminophen ([place] 5-325 Mg) 1 tab PO Q6H PRN PRN Reason: Moderate Pain Stop: 05/17/18 23:48 Last Admin: 11/16/17 10:13 Dose: 1 tab Albuterol/Ipratropium (Duoneb) 3 ml IH [id number] TATUM Stop: 05/18/18 00:01 Last Admin: 11/18/17 11:31 Dose: Not Given Amlodipine Besylate (Norvasc) 5 mg PO DAILY TATUM PRN Reason: Protocol Stop: 05/18/18 09:01 Last Admin: 11/18/17 07:56 Dose: 5 mg Aspirin (Aspirin Ec) 81 mg PO DAILY TATUM Stop: 05/18/18 09:01 Last Admin: 11/18/17 07:56 Dose: 81 mg Atorvastatin Calcium (Lipitor) 10 mg PO HS TATUM Stop: 05/18/18 21:01 Last Admin: 11/17/17 22:27 Dose: 10 mg Colchicine (Colcrys) 0.6 mg PO BID TATUM Stop: 05/19/18 14:31 Last Admin: 11/18/17 07:56 Dose: 0.6 mg Furosemide (Lasix) 20 mg IVP BIDDIURETIC TATUM Stop: 05/18/18 12:46 Last Admin: 11/18/17 07:57 Dose: 20 mg Levofloxacin/Dextrose (Levaquin Premix 750mg/150 Ml) 750 mg in 150 mls @ 100 mls/hr IVPB DAILY TATUM PRN Reason: Protocol Stop: 05/18/18 14:01 Last Infusion: 11/18/17 09:36 Dose: Infused Metoprolol Succinate (Toprol Xl) 100 mg PO DAILY TATUM Stop: 05/20/18 09:01 Last Admin: 11/18/17 07:56 Dose: 100 mg Naloxone HCl (Narcan) 0.4 mg IVP Q2MIN PRN PRN Reason: SEE COMMENTS Stop: 05/17/18 23:48 Ondansetron HCl (Zofran) 4 mg IVP Q8H PRN PRN Reason: Nausea And Vomiting Stop: 05/17/18 23:48 Prednisone (Prednisone) 40 mg PO DAILY [facility] Stop: 05/20/18 09:01 Last Admin: 11/18/17 07:55 Dose: 40 mg Promethazine HCl (Phenergan) 12.5 mg IVP Q6H PRN PRN Reason: Nausea And Vomiting Stop: 05/17/18 23:48 Propafenone HCl (Rhythmol) 150 mg PO BID [facility] Stop: 05/18/18 09:01 Last Admin: 11/18/17 07:56 Dose: 150 mg Rivaroxaban (Xarelto) 20 mg PO DAILY [facility] Stop: 05/18/18 09:01 Last Admin: 11/18/17 07:56 Dose: 20 mg Laboratory Tests 11/15/17 11/16/17 11/16/17 19:57 05:00 05:00 WBC 25.0 H Hgb Creatinine Troponin I < 0.03 0.03 11/16/17 11/17/17 11/18/17 09:48 06:10 01:53 WBC 31.8 H* 30.2 H* Hgb 12.5 L Creatinine Troponin I < 0.03 11/18/17 01:53 WBC Hgb Creatinine 1.46 H Troponin I - Imaging and Cardiology Chest Xray: report reviewed Echo: report reviewed - EKG Interpretation EKG results cardiology: other (Telemetry reviewed with average HR previous 12 hours noted to be 77, a.fib with intermittent paced rhythm noted.) Consult Discharge Plan - Plan Referrals: Hardik Lantigua MD [Primary Care Provider] -
--- NOTE | 2017-11-18 17:24 | Discharge Summary ---
<Deo Hernandez - Last Filed: 11/18/17 17:21> - NOTES TO OUTPATIENT PROVIDER Notes to Outpatient Provider: Patient will be starting cochicine 0.6 mg BID for 3 months. He will need to continue this medication at least until reassessed by Cardiology for his pericarditis. He will also have a slightly increased dose of Toprol XL, until he can be reassessed by EP. Orders not resulted at time of discharge: Pending orders 11/19/17 04:00 BMP [Basic Metabolic Panel] AM 0400 CBC [Complete Blood Count] [HEME] AM 0400 Date of Encounter: 11/18/17 Time of Encounter: 08:40 - Discharge Diagnosis (1) Pericarditis Priority: Primary Status: Acute Qualifiers: Pericarditis type: idiopathic Chronicity: acute Qualified Code(s): I30.0 - Acute nonspecific idiopathic pericarditis (2) Acute respiratory failure with hypoxia Priority: Primary Status: Resolved (3) Bronchitis Priority: Primary Status: Acute (4) COPD exacerbation Priority: Primary Status: Acute (5) Systolic CHF, acute on chronic Priority: Primary Status: Chronic (6) CKD (chronic kidney disease) stage 3, GFR 30-59 ml/min Priority: Primary Status: Chronic (7) HTN (hypertension) Priority: Primary Status: Chronic Qualifiers: Hypertension type: essential hypertension Qualified Code(s): I10 - Essential (primary) hypertension (8) PAF (paroxysmal atrial fibrillation) Priority: Primary Status: Chronic (9) S/P cardiac pacemaker procedure Priority: Primary Status: Chronic Hospital course: Mr. Reyna is a 67 year old male - Time Spent with Patient Total time spent providing and/or coordinating discharge services: - Discharge Medications Prescriptions: Colchicine [Colcrys] 0.6 mg PO BID #30 tablet Metoprolol Succinate [Toprol Xl] 100 mg PO DAILY #30 tab.er.24h predniSONE [PredniSONE] 40 mg PO DAILY #4 tablet Home Medications: Aspirin [Lo-Dose Aspirin EC] 81 mg PO DAILY 09/01/17 [History] Atorvastatin [Lipitor] 10 mg PO HS 09/01/17 [History] Propafenone [Rhythmol] 150 mg PO BID 09/01/17 [History] Rivaroxaban [Xarelto] 20 mg PO DAILY 09/01/17 [History] amLODIPine [Norvasc] 5 mg PO DAILY 09/01/17 [History] Colchicine [Colcrys] 0.6 mg PO BID #30 tablet 11/18/17 [Rx] Metoprolol Succinate [Toprol Xl] 100 mg PO DAILY #30 tab.er.24h 11/18/17 [Rx] predniSONE [PredniSONE] 40 mg PO DAILY #4 tablet 11/18/17 [Rx] Allergies/Adverse Reactions: 3 Allergy/AdvReac Type Severity Reaction Status Date / Time No Known Allergies Allergy Verified 11/15/17 19:20 Date of admission: 11/15/17 23:47 Primary care physician: Hardik Lantigua MD Consults: 11/17/17 11:54 Consult to Cardiology [CONS] Routine Comment: Consulting Provider: Cardiology Tammi Reason for Consult: patient in afib rvr and resolved spontaenously. Concerned may be causing his CHF exacerbation. on Rhythmol and metoprolol. Call Completed: Yes Discharging clinician: Deo Hernandez Anticipated date of discharge: 11/18/17 - Constitutional Vitals: Temp Pulse Resp BP Pulse Ox 97.8 F 85 16 95/56 95 11/18/17 11:35 11/18/17 11:35 11/18/17 11:35 11/18/17 11:35 11/18/17 11:35 General appearance: Present: A&O X 3, no acute distress, answers questions appropriately - Patient Status Disposition: Home, Self-Care Condition: Good Functional capacity at discharge: independent ambulation Overall status at discharge: patient is progressing back to baseline - Discharge Instructions Follow Up With: Hardik Lantigua MD [Primary Care Provider] - Additional Instructions: Please return to ER if worsening chest pain, shortness of breath, or development of fever. If a feeling of lightheadedness or dizziness develops please return to ER. Please take all medications as prescribed: Colchcine 0.6 mg twice a day Toprol 100 mg daily Prednisone 40 mg daily for 3 days Please follow up with your PCP in 1-2 weeks Please follow up with cardiology in 2-3 weeks to follow up on your pericarditis Please follow up with electrophysiology in 2-3 weeks to address your pacemaker - Diet and Activity Activity: resume usual activities as tolerated Diet: low fat, low cholesterol, low salt diet <Arnav Salazar - Last Filed: 11/18/17 18:19> Orders not resulted at time of discharge: Pending orders 11/19/17 04:00 BMP [Basic Metabolic Panel] AM 0400 CBC [Complete Blood Count] [HEME] AM 0400 Date of Encounter: 11/18/17 Hospital course: Mr. Reyna is a 67 year old male - Time Spent with Patient Total time spent providing and/or coordinating discharge services: Date of admission: 11/15/17 23:47 Primary care physician: Hardik Lantigua MD Consults: 11/17/17 11:54 Consult to Cardiology [CONS] Routine Comment: Consulting Provider: Cardiology Tammi Reason for Consult: patient in afib rvr and resolved spontaenously. Concerned may be causing his CHF exacerbation. on Rhythmol and metoprolol. Call Completed: Yes - Constitutional Vitals: Temp Pulse Resp BP Pulse Ox 97.9 F 87 16 98/54 96 11/18/17 14:27 11/18/17 14:27 11/18/17 14:27 11/18/17 14:27 11/18/17 14:27 - Attending Attestation I performed an independent interview and examine this patient. Discussed the case with Dr. Hernandez, internal medicine resident. Discharge summary reflects our discussion on rounds. I agree with his findings, assessment and plan. Cardiology input also noted and appreciated. She chest pain was felt to be due to pericarditis by cardiology. He was started on colchicine as he would not tolerate nonsteroidals given his impaired renal function. Patient was improved by day of discharge. Patient was deemed stable for discharge. All over with cardiology as recommended. All else as outlined above.
[2017-11-18 17:41] VITALS: BP 98/54
== END 2017-11-18 18:57 | disposition home or self-care (01) | DRG 314 ==
LOC: EMEROO 19:02 → 3NENU 19:02
PROVIDERS: ADMIT Family Medicine; ATTEND Internal Medicine

== ENCOUNTER 2017-12-08 09:59 | Inpatient (IN) ==
--- NOTE | 2017-12-08 10:05 | Emergency Department Note ---
Disposition Clinical Impression: Atrial fibrillation Qualifiers: Atrial fibrillation type: paroxysmal Qualified Code(s): I48.0 - Paroxysmal atrial fibrillation Dyspnea Qualifiers: Dyspnea type: shortness of breath Qualified Code(s): R06.02 - Shortness of breath; R06.00 - Dyspnea, unspecified; R06.01 - Orthopnea Disposition: Admitted As Inpatient Condition: Fair Referrals: Hardik Lantigua MD [Primary Care Provider] - Time of Disposition: 16:36 General Adult HPI - General Stated complaint: VIKAS, sent for ECHO Time Seen by Provider: 12/08/17 10:02 Nursing Notes Reviewed: Yes Vital Signs Reviewed: Yes - History of Present Illness HPI Narrative: Mr. Leal, 67-year-old male, presents from his [employer] office for evaluation of progressive dyspnea. Progressive over last 3 weeks. This is not positional. Worsened with the lightest of exertion. 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 Patient's symptoms at that time was that he was sent down immediately falsely. Patient and are unable to discern "falling asleep" from syncope. Patient noted that after the pacemaker this improves however, recently, he is back to sitting down and falling asleep similar to symptoms prior to pacemaker placement. PMH: atrial fibrillation on Xarelto and rhythmol, cardioverted 2x previously. Chronic kidney disease. Pacemaker placed 11/15/17 for complete block. History of pericardial effusion and pericarditis. ROS: Positive: As above Negative: Chest pains, palpitations, diaphoresis, new back pains. He has no associated fever, cough, nausea, vomiting, or abdominal pains. - Related Data Home Medications Medication Instructions Recorded Confirmed Aspirin [Lo-Dose Aspirin EC] 81 mg PO DAILY 09/01/17 12/08/17 Atorvastatin [Lipitor] 10 mg PO HS 09/01/17 12/08/17 Propafenone [Rhythmol] 150 mg PO BID 09/01/17 12/08/17 Rivaroxaban [Xarelto] 20 mg PO DAILY 09/01/17 12/08/17 amLODIPine [Norvasc] 5 mg PO DAILY 09/01/17 12/08/17 Umeclidinium [place] [Incruse 62.5 mcg IH DAILY 12/08/17 12/08/17 Ellipta] Previous Rx's Medication Instructions Recorded Metoprolol Succinate [Toprol Xl] 100 mg PO DAILY #30 tab.er.24h 11/18/17 Allergies Allergy/AdvReac Type Severity Reaction Status Date / Time No Known Allergies Allergy Verified 12/08/17 12:09 All systems ED: reviewed and negative except as stated. Review of Systems: As Per HPI Past Medical History - Past Medical History Medical history: Reports: atrial fibrillation, hyperlipidemia, hypertension, renal disease, other Surgical history: Reports: appendectomy Psychiatric history: Reports: no psych history - Social History Smoking Status: Former smoker Smokeless Tobacco Status: No Alcohol use: Reports: occasionally Drug use: Reports: none Physical Exam Vital Signs Reviewed General: Patient is alert, oriented, and in no acute distress. Head: atraumatic, normocephalic Eye: normal appearance, no scleral icterus, no conjunctival injection ENT: mucous membranes moist, normal external ear exam Neck: normal inspection, trachea midline, full ROM Chest: normal inspection, symmetric chest rise Respiratory: Good respiratory effort. Bilateral breath sounds are clear without wheezing, crackles, or rhonchi. Cardiovascular: Regular rate and irregular rhythm. No clicks, rubs, gallops, or murmors. Normal heart sounds. Abdomen: Obese. Bowel sounds present normoactive x-4 quadrants. Abdomen is soft, nondistended, and nontender. No guarding or rebound. No organomegaly noted. Musculoskeletal: Spontaneously moving all extremities. Skin: warm, dry, intact. Neuro: Alert and oriented x4. Sensation light touch intact. Psych: Patient's affect is appropriate for situation. Course Course Narrative: EKG dated 12/08/17 at 10:08 interpreted as atrial fibrillation rate controlled with a rate of 71. T-wave inversions in precordial leads present on comparative EKG. Compared to previous EKG dated 09/01/2017 at 13:04 showing no acute ischemic changes. 15:50 Discussed the patient with [employer] who was evaluating the patient's pacemaker. (Radha) Atrial arrhythmia since 16 November 2017. No evidence of lead malfunction. Noise/artifact on data from October...pacemaker was over-sensing October 22-. None currently. Fax incoming. Patient remains symptomatic says that he is dyspneic after approximately 3 steps. Though nothing urgent from a cardiac standpoint recommend admission from a symptomatic standpoint. I discussed the patient with Dr. Ozzy Chaudhari agrees to see the patient on consult with admission to hospitalist. Likely plan is adjustment of his antiarrhythmic with possible cardioversion in the next several days. I discussed the patient with the admitting hospitalist, Dr. Whitmore, who agrees to accept the patient for continued evaluation and management. Vital Signs Temperature 98.1 F 12/08/17 10:06 Pulse Rate 70 12/08/17 10:06 Respiratory Rate 12 12/08/17 10:06 Blood Pressure 123/97 12/08/17 10:06 O2 Sat by Pulse Oximetry 95 12/08/17 10:06 Temperature 98.1 F 12/08/17 10:06 Pulse Rate 80 12/08/17 14:17 Respiratory Rate 18 12/08/17 14:17 Blood Pressure 114/82 12/08/17 14:17 O2 Sat by Pulse Oximetry 93 12/08/17 14:17 Oxygen Delivery Oxygen Delivery Room Air Medical Decision Making - Lab Data Result diagrams: 12/08/17 11:15 12/08/17 11:15 Lab Results 12/08/17 12/08/17 12/08/17 Range/Units 11:15 11:15 11:15 WBC 9.2 (4.3-11.1) K/mcL RBC 4.11 L (4.19-5.50) M/mcL Hgb 12.6 L (12.9-16.9) g/dL Hct 37.9 (37.5-50.1) % MCV 92.2 (83.0-100.0) fL MCH 30.7 (28.0-33.3) pg MCHC 33.2 (31.6-35.5) g/dL RDW 13.4 (11.5-14.5) % Plt Count 243 (140-400) K/mcL MPV 9.8 (9.4-12.4) fL Immature Gran % 0.3 (0-4) % Seg Neutrophils % 65.8 % Lymphocytes % 22.2 % Monocytes % 9.9 % Eosinophils % 1.5 % Basophils % 0.3 % Neutrophils # 6.1 (1.6-8.9) K/mcL Lymphocytes # 2.1 (0.6-4.6) K/mcL Monocytes # 0.9 (0.0-1.3) K/mcL Eosinophils # 0.1 (0.0-0.6) K/mcL Basophils # 0.0 (0.0-0.2) K/mcL PT 18.7 H (9.4-12.1) Seconds INR 1.7 APTT 36.0 (26.0-36.0) Seconds Sodium 138 (136-145) mEq/L Potassium 4.4 (3.5-5.1) mEq/L Chloride 106 (98-107) mEq/L Carbon Dioxide 23 (23-29) mEq/L BUN 19 (8-23) mg/dL Creatinine 1.37 H (0.70-1.30) mg/dL Est GFR ( Amer) > 60 (> 60) Est GFR (Non-Af Amer) 52 L (> 60) BUN/Creatinine Ratio 14 (6-26) Glucose 103 (70-105) mg/dL Calculated Osmolality 289 (280-300) Calcium 9.2 (8.6-10.3) mg/dL Troponin I < 0.03 (< 0.04) ng/mL B-Natriuretic Peptide (Less than 100) pg/mL 12/08/17 Range/Units 11:15 WBC (4.3-11.1) K/mcL RBC (4.19-5.50) M/mcL Hgb (12.9-16.9) g/dL Hct (37.5-50.1) % MCV (83.0-100.0) fL MCH (28.0-33.3) pg MCHC (31.6-35.5) g/dL RDW (11.5-14.5) % Plt Count (140-400) K/mcL MPV (9.4-12.4) fL Immature Gran % (0-4) % Seg Neutrophils % % Lymphocytes % % Monocytes % % Eosinophils % % Basophils % % Neutrophils # (1.6-8.9) K/mcL Lymphocytes # (0.6-4.6) K/mcL Monocytes # (0.0-1.3) K/mcL Eosinophils # (0.0-0.6) K/mcL Basophils # (0.0-0.2) K/mcL PT (9.4-12.1) Seconds INR APTT (26.0-36.0) Seconds Sodium (136-145) mEq/L Potassium (3.5-5.1) mEq/L Chloride (98-107) mEq/L Carbon Dioxide (23-29) mEq/L BUN (8-23) mg/dL Creatinine (0.70-1.30) mg/dL Est GFR ( Amer) (> 60) Est GFR (Non-Af Amer) (> 60) BUN/Creatinine Ratio (6-26) Glucose (70-105) mg/dL Calculated Osmolality (280-300) Calcium (8.6-10.3) mg/dL Troponin I (< 0.04) ng/mL B-Natriuretic Peptide 284 H (Less than 100) pg/mL Attestation Statement - Attestation Attestation: I, Chris Daniel DO, examined this patient [id number] and my medical decision-making was reviewed with Dr. Yunier Serna, Resident Physician. I agree with the documented findings, disposition and treatment plan as described except to the extent set forth below. Please see my progress notes for details.
[2017-12-08 11:26] LABS: Basophils % 0.3 %; Eosinophils # 0.1 K/mcL (0.0-0.6); Eosinophils % 1.5 %; Hematocrit 37.9 % (37.5-50.1); Hemoglobin 12.6 g/dL (12.9-16.9); Immature Granulocytes % 0.3 % (0-4); Lymphocytes # 2.1 K/mcL (0.6-4.6); Lymphocytes % 22.2 %; Mean Corpuscular HGB Conc 33.2 g/dL (31.6-35.5); Mean Corpuscular Hemoglobin 30.7 pg (28.0-33.3); Mean Corpuscular Volume 92.2 fL (83.0-100.0); Mean Platelet Volume 9.8 fL (9.4-12.4); Monocytes # 0.9 K/mcL (0.0-1.3); Monocytes % 9.9 %; Neutrophils # 6.1 K/mcL (1.6-8.9); Platelet Count 243 K/mcL (140-400); Red Blood Count 4.11 M/mcL (4.19-5.50); Red Cell Distribution Width 13.4 % (11.5-14.5); Segmented Neutrophils % 65.8 %
[2017-12-08 11:28] LABS: INR 1.7; Prothrombin Time 18.7 Seconds (9.4-12.1)
[2017-12-08 11:47] LABS: Troponin I < 0.03 ng/mL (< 0.04)
[2017-12-08 11:54] LABS: BUN/Creatinine Ratio 14 (6-26); Blood Urea Nitrogen 19 mg/dL (8-23); Calcium 9.2 mg/dL (8.6-10.3); Carbon Dioxide 23 mEq/L (23-29); Chloride 106 mEq/L (98-107); Glucose 103 mg/dL (70-105); Osmolality,Calculated 289 (280-300); Potassium 4.4 mEq/L (3.5-5.1); Sodium 138 mEq/L (136-145); eGFR For African Americans > 60 (> 60); eGFR For Non-African Americans 52 (> 60)
--- NOTE | 2017-12-08 13:04 | Emergency Department Note ---
Disposition Clinical Impression: Atrial fibrillation Qualifiers: Atrial fibrillation type: paroxysmal Qualified Code(s): I48.0 - Paroxysmal atrial fibrillation Dyspnea Qualifiers: Dyspnea type: shortness of breath Qualified Code(s): R06.02 - Shortness of breath Disposition: Admitted As Inpatient Condition: Good Time of Disposition: 16:47 General Adult HPI - General Chief complaint: ED Shortness of Breath/Dyspnea Stated complaint: VIKAS, sent for ECHO Time Seen by Provider: 12/08/17 10:02 Source: patient - History of Present Illness Pain Scale: 0 - Related Data Home Medications Medication Instructions Recorded Confirmed Aspirin [Lo-Dose Aspirin EC] 81 mg PO DAILY 09/01/17 12/08/17 Atorvastatin [Lipitor] 10 mg PO HS 09/01/17 12/08/17 Propafenone [Rhythmol] 150 mg PO BID 09/01/17 12/08/17 Rivaroxaban [Xarelto] 20 mg PO DAILY 09/01/17 12/08/17 amLODIPine [Norvasc] 5 mg PO DAILY 09/01/17 12/08/17 Umeclidinium [place] [Incruse 62.5 mcg IH DAILY 12/08/17 12/08/17 Ellipta] Previous Rx's Medication Instructions Recorded Metoprolol Succinate [Toprol Xl] 100 mg PO DAILY #30 tab.er.24h 11/18/17 Allergies Allergy/AdvReac Type Severity Reaction Status Date / Time No Known Allergies Allergy Verified 12/08/17 12:09 Past Medical History - Past Medical History Medical history: Reports: atrial fibrillation, hyperlipidemia, hypertension, renal disease, other Surgical history: Reports: appendectomy Psychiatric history: Reports: no psych history - Social History Smoking Status: Former smoker Smokeless Tobacco Status: No Alcohol use: Reports: occasionally Drug use: Reports: none Physical Exam - General General appearance: alert Course Vital Signs Temperature 98.1 F 12/08/17 10:06 Pulse Rate 70 12/08/17 10:06 Respiratory Rate 12 12/08/17 10:06 Blood Pressure 123/97 12/08/17 10:06 O2 Sat by Pulse Oximetry 95 12/08/17 10:06 Temperature 98.1 F 12/08/17 10:06 Pulse Rate 67 12/08/17 16:42 Respiratory Rate 25 12/08/17 16:42 Blood Pressure 108/79 04/26/18 16:42 O2 Sat by Pulse Oximetry 94 12/08/17 16:42 Oxygen Delivery Oxygen Delivery Nasal Cannula Medical Decision Making - Lab Data Result diagrams: 12/08/17 11:15 12/08/17 11:15 Lab Results 12/08/17 12/08/17 12/08/17 Range/Units 11:15 11:15 11:15 WBC 9.2 (4.3-11.1) K/mcL RBC 4.11 L (4.19-5.50) M/mcL Hgb 12.6 L (12.9-16.9) g/dL Hct 37.9 (37.5-50.1) % MCV 92.2 (83.0-100.0) fL MCH 30.7 (28.0-33.3) pg MCHC 33.2 (31.6-35.5) g/dL RDW 13.4 (11.5-14.5) % Plt Count 243 (140-400) K/mcL MPV 9.8 (9.4-12.4) fL Immature Gran % 0.3 (0-4) % Seg Neutrophils % 65.8 % Lymphocytes % 22.2 % Monocytes % 9.9 % Eosinophils % 1.5 % Basophils % 0.3 % Neutrophils # 6.1 (1.6-8.9) K/mcL Lymphocytes # 2.1 (0.6-4.6) K/mcL Monocytes # 0.9 (0.0-1.3) K/mcL Eosinophils # 0.1 (0.0-0.6) K/mcL Basophils # 0.0 (0.0-0.2) K/mcL PT 18.7 H (9.4-12.1) Seconds INR 1.7 APTT 36.0 (26.0-36.0) Seconds Sodium 138 (136-145) mEq/L Potassium 4.4 (3.5-5.1) mEq/L Chloride 106 (98-107) mEq/L Carbon Dioxide 23 (23-29) mEq/L BUN 19 (8-23) mg/dL Creatinine 1.37 H (0.70-1.30) mg/dL Est GFR ( Amer) > 60 (> 60) Est GFR (Non-Af Amer) 52 L (> 60) BUN/Creatinine Ratio 14 (6-26) Glucose 103 (70-105) mg/dL Calculated Osmolality 289 (280-300) Calcium 9.2 (8.6-10.3) mg/dL Troponin I < 0.03 (< 0.04) ng/mL B-Natriuretic Peptide (Less than 100) pg/mL 12/08/17 Range/Units 11:15 WBC (4.3-11.1) K/mcL RBC (4.19-5.50) M/mcL Hgb (12.9-16.9) g/dL Hct (37.5-50.1) % MCV (83.0-100.0) fL MCH (28.0-33.3) pg MCHC (31.6-35.5) g/dL RDW (11.5-14.5) % Plt Count (140-400) K/mcL MPV (9.4-12.4) fL Immature Gran % (0-4) % Seg Neutrophils % % Lymphocytes % % Monocytes % % Eosinophils % % Basophils % % Neutrophils # (1.6-8.9) K/mcL Lymphocytes # (0.6-4.6) K/mcL Monocytes # (0.0-1.3) K/mcL Eosinophils # (0.0-0.6) K/mcL Basophils # (0.0-0.2) K/mcL PT (9.4-12.1) Seconds INR APTT (26.0-36.0) Seconds Sodium (136-145) mEq/L Potassium (3.5-5.1) mEq/L Chloride (98-107) mEq/L Carbon Dioxide (23-29) mEq/L BUN (8-23) mg/dL Creatinine (0.70-1.30) mg/dL Est GFR ( Amer) (> 60) Est GFR (Non-Af Amer) (> 60) BUN/Creatinine Ratio (6-26) Glucose (70-105) mg/dL Calculated Osmolality (280-300) Calcium (8.6-10.3) mg/dL Troponin I (< 0.04) ng/mL B-Natriuretic Peptide 284 H (Less than 100) pg/mL Attestation Statement - Attestation Attestation: I, Chris Daniel DO, examined this patient [id number] and my medical decision-making was reviewed with Dr. Yunier Serna, Resident Physician. I agree with the documented findings, disposition and treatment plan as described except to the extent set forth below. Please see my progress notes for details. 67-year-old male presents to the emergency room at the request of the hand plate stacker Dr. Gutierrez. Patient was seen in the outpatient setting today for evaluation of increased weakness and exertional dyspnea. Patient had a pacemaker placed earlier this year for heart block and bradycardia. Patient was feeling better after the initial pacemaker placement since that is so declined with his weakness. He denies any active chest pain shortness of breath headache vision changes nausea vomiting or diarrhea. Denies any fevers or chills. Patient did have a previous pericardial effusion. He denies any other symptoms or issues this point. He is afebrile. Vital signs are reviewed and are stable. EKG shows a stable A. fib. No acute changes noted at this time. Patient does have chronic A. fib and is currently on Xarelto. Patient is denying any symptoms at this point. Lungs are clear heart is regular but stable. Abdomen is soft. He has no signs of bruising bleeding or injury. He has no signs of pitting edema. Patient was screening evaluation completed including CBC chemistry and labs. Patient also have echocardiogram at the request of the hand plate stacker interrogation of the pacemaker. Disposition will be determined once workup and treatment course are completed. Patient otherwise has no other complaints or issues prior to coming in today outside of his persistently worsening weakness. Patient denies any fevers or chills medication changes or other underlying etiology this point. See detailed documentation of the physical exam, medical intervention, medical decision- making and disposition in the resident physician's note. [id number] Patient is stable pericardial effusion. EKG and labs are unremarkable. Conversation was had with the on-call hand plate stacker Dr. Ozzy Chaudhari he recommended to complete interrogation and then discuss the findings with him. Clinically, he does not feel this point the patient requires admission was the interrogation is appropriate. Disposition pending interrogation of the pacemaker 1600 Pacemaker was interrogated. Patient has been having cardiac arrhythmias including atrial arrhythmia based on the pacemaker interrogation. This information was discussed with the hand plate stacker. He felt that the patient potentially could go home with the patient is symptomatic at this point to where he takes 3 or 4 steps and he gets short of breath. Patient will be admitted for further management and evaluation of this presentation symptoms. No other acute concerns or issues at this point. Patient is already appropriately anticoagulated. Otherwise has no other acute pathology. Hospice was contacted they are happy to the patient to their facility for further evaluation. No other acute issues noted time. Patient's family was informed that the plan. Patient was stable at the time of admission. Continue to monitor here in the emergency room to the admission process is completed
[2017-12-08] MEDS ORDERED: Naloxone 0.4 MG/ML INJ IVP PRN (20:34)
[2017-12-08] MEDS ORDERED: Acetaminophen 325 MG TABLET PO PRN (21:20)
--- NOTE | 2017-12-08 21:45 | Internal Med History&Physical ---
<Barb Rainey H - Last Filed: 12/08/17 23:18> Date of Encounter: 12/08/17 Time of Encounter: 21:43 Internal Medicine - H&P: HPI Chief complaint: shortness of breath/exertional dyspnea Admitted From: Emergency Dept Plans for Post Hospital Care: Home History of present illness: Mr. Reyna is a 67 year old male with past medical history of paroxysmal atrial fibrillation, HTN, and HLD who presents to a [facility] on 12/08/2017 with chief complaints of shortness of breath worsened on exertion. 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 Gutierrez who transferred him to the emergency department for further workup for his exertional shortness of breath. Patient states the shortness of breath began in August 2017 around the time he had a pacemaker implanted for a complete heart block. He was recently hospitalized at the beginning of November 2017 for shortness of breath and pericardial effusion. Patient states his shortness of breath has not improved since being discharged home from the hospital. He states he is unable to take more than a few steps without becoming dyspneic. Patient states he had his pacemaker interrogated on Tuesday which showed episodes of atrial fibrillation. He denies any chest pain, palpitations, nausea, vomiting, or diaphoresis. He denies orthopnea or lower extremity edema. He denies any dysuria, gross hematuria, headache, focal weaknesses, or dizziness. He does report weakness and fatigue. Patient is currently rate controlled with Rythmol and anticoagulated with several toe. He reports being cardioverted in 2013. He does report history of snoring but has never been formally tested for obstructive sleep apnea. EKG in the ED shows T-wave inversions in precordial leads unchanged from previous EKG. Pacemaker was interrogated in the ED and demonstrates "Atrial arrhythmia since 16 November 2017. No evidence of lead malfunction. Noise/artifact on data from October...pacemaker was over-sensing October 22-. None currently." Dr. Chaudhari was consulted from the ED and recommended admission with consultation , and potential adjustment of his antiarrhythmics and potential cardioversion. Past Med Surg Social Fam HX - Past Medical History Attestation: Yes The following information was validated with the patient. Source: patient, old records reviewed Medical history: atrial fibrillation, hyperlipidemia, hypertension, renal disease, other Psychiatric history: no psych history - Past Surgical History Surgical History: appendectomy - Social History Smoking Status: Former smoker Smokeless Tobacco Status: No Alcohol use: occasionally Drug use: none - Family History Mother Living Status: Hx Family Cardiac Disorders: Yes (afib) Hx Family Neurologic Disorders: Yes (dementia) Father Living Status: Hx Family Cardiac Disorders: Yes (CABG) Hx Family Cancer: Yes (colon) Grandfather Hx Family Cardiac Disorders: Yes (MA) Hx Family Cancer: Yes (colon) Internal Medicine - H&P: Meds Aspirin [Lo-Dose Aspirin EC] 81 mg PO DAILY 09/01/17 [History] Atorvastatin [Lipitor] 10 mg PO HS 09/01/17 [History] Propafenone [Rhythmol] 150 mg PO BID 09/01/17 [History] Rivaroxaban [Xarelto] 20 mg PO DAILY 09/01/17 [History] amLODIPine [Norvasc] 5 mg PO DAILY 09/01/17 [History] Metoprolol Succinate [Toprol Xl] 100 mg PO DAILY #30 tab.er.24h 11/18/17 [Rx] Umeclidinium [place] [Incruse Ellipta] 62.5 mcg IH DAILY 12/08/17 [History] 3 Allergy/AdvReac Type Severity Reaction Status Date / Time No Known Allergies Allergy Verified 12/08/17 12:09 All Systems PM: A 10-system review of systems was performed and is negative for pertinent findings except as documented above in the HPI. - Constitutional Constitutional: fatigue, lethargy, weakness, no chills, no fever(s), no weight gain, no weight loss - EENT Eyes: no change in vision, no other visual disturbances Nose, mouth and throat: no nasal congestion, no nasal discharge - Cardiovascular Cardiovascular ROS IM: dyspnea, dyspnea on exertion, no chest pain, no claudication, no diaphoresis, no edema, no irregular heart rhythm, no lightheadedness, no orthopnea, no palpitations, no paroxysmal nocturnal dyspnea , no syncope - Respiratory Respiratory: dyspnea, snoring, no cough, no wheezing, no pain on inspiration, no chest congestion - Gastrointestinal Gastrointestinal: no abdominal pain, no coffee ground emesis, no diarrhea, no hematemesis, no hematochezia, no loose stools, no melena, no nausea - Genitourinary Genitourinary ROS male: no difficulty urinating, no hematuria, no urinary frequency, no urinary urgency - Integumentary Integumentary IM: no erythema, no rash, no unusual bruising, no jaundice - Neurological Neurological ROS: no focal weakness, no frequent falls, no numbness, no paresthesias, no radicular pain - Psychiatric Psychiatric: no abnormal sleep pattern, no confusion, no panic attacks - Endocrine Endocrine IM: no cold intolerance, no heat intolerance - Constitutional Vitals: Temp Pulse Resp BP Pulse Ox 97.6 F 70 22 128/85 97 12/08/17 18:00 12/08/17 18:00 12/08/17 18:00 12/08/17 18:00 12/08/17 18:00 General appearance: Present: cooperative, A&O X 3, pleasant, no acute distress, answers questions appropriately - Head Head exam: Present: atraumatic, normocephalic - Eye Eye exam: Present: conjuntiva pink, sclera anicteric - Neck Neck exam general surgery: Present: supple, trachea midline. Absent: lymphadenopathy - Respiratory Respiratory exam: Present: CTAB. Absent: accessory muscle use, rales, rhonchi, wheezes - Cardiovascular Cardiovascular exam: Present: irregular rhythm, +S1, +S2. Absent: diastolic murmur, gallop, rubs, systolic murmur - GI/Abdominal GI/Abdominal exam: Present: normal bowel sounds, soft, no peritoneal signs. Absent: distended, firm, guarding, tenderness - Extremities Exam Extremities exam: Present: warm, radial pulses palpable and symmetrical. Absent : calf tenderness, cyanotic, pedal edema - Neurological Exam Neurological exam: Present: CN II-XII intact, oriented X3, no focal deficits. Absent: pronater drift, facial droop, speech deficit - Skin Skin exam: Present: dry, intact, warm Internal Med - H&P Results - Labs CBC & Chem 7: 12/08/17 11:15 12/08/17 11:15 - Assessment and plan (1) Dyspnea Current Visit: Yes Status: Acute Assessment and plan: 67-year-old male with past medical history of paroxysmal atrial fibrillation currently rate controlled and anticoagulated presents with three-week history of worsening exertional dyspnea. -Etiology unclear. Patient does not appear fluid overloaded on physical exam, BNP is 284. Limited echo in the ED demonstrates preserved EF of 55% with persistent mild pericardial effusion no evidence of tamponade. -Pacemaker interrogated in the ED. Atrial arrhythmias noted. -Dr. Chaudhari, EP, was consulted by ED. -We will follow-up cardiology recommendations for antiarrhythmic medication adjustments and potential cardioversion. Qualifiers: Dyspnea type: dyspnea on exertion Qualified Code(s): R06.09 - Other forms of dyspnea (2) PAF (paroxysmal atrial fibrillation) Current Visit: No Status: Chronic Assessment and plan: Continue home medications of Rythmol and xarelto. -Follow-up cardiology consultation. (3) S/P cardiac pacemaker procedure Current Visit: No Status: Chronic Assessment and plan: Interrogated in the ED. Demonstrates atrial arrhythmia since 11/16/2017 -Follow-up EP recommendations. (4) CKD (chronic kidney disease) stage 3, GFR 30-59 ml/min Current Visit: No Status: Chronic Assessment and plan: Avoid nephrotoxic agents and renal diet. (5) HTN (hypertension) Current Visit: No Status: Chronic Assessment and plan: Resume home medications. Qualifiers: Hypertension type: essential hypertension Qualified Code(s): I10 - Essential (primary) hypertension (6) DVT prophylaxis Current Visit: Yes Status: Acute Assessment and plan: On xarelto currently. - Time Spent With Patient Total time spent is greater than 50% in coordination of care (as documented) at patient's floor/unit and/or counseling patient: <Mayank Mcmahan - Last Filed: 12/09/17 01:09> Date of Encounter: 12/09/17 Internal Medicine - H&P: HPI History of present illness: Mr. Reyna is a 67 year old male All Systems PM: A 10-system review of systems was performed and is negative for pertinent findings except as documented above in the HPI. - Constitutional Vitals: Temp Pulse Resp BP Pulse Ox 98.8 F 74 16 113/72 96 12/08/17 22:42 12/08/17 22:42 12/08/17 22:42 12/08/17 22:42 12/08/17 22:42 Internal Med - H&P Results - Labs CBC & Chem 7: 12/08/17 11:15 12/08/17 11:15 - Attending Attestation I have seen and examined this patient independently. I have discussed with resident physician Dr Rainey regarding the management plan. Agree with the documentation. - Assessment and plan (1) PAF (paroxysmal atrial fibrillation) Current Visit: No Status: Chronic (2) S/P cardiac pacemaker procedure Current Visit: No Status: Chronic (3) CKD (chronic kidney disease) stage 3, GFR 30-59 ml/min Current Visit: No Status: Chronic (4) HTN (hypertension) Current Visit: No Status: Chronic Qualifiers: Hypertension type: essential hypertension Qualified Code(s): I10 - Essential (primary) hypertension (5) Dyspnea Current Visit: Yes Status: Acute Qualifiers: Dyspnea type: dyspnea on exertion Qualified Code(s): R06.09 - Other forms of dyspnea (6) DVT prophylaxis Current Visit: Yes Status: Acute - Time Spent With Patient Total time spent is greater than 50% in coordination of care (as documented) at patient's floor/unit and/or counseling patient:
[2017-12-09 04:25] LABS: Basophils # 0.1 K/mcL (0.0-0.2); Basophils % 0.5 %; Eosinophils # 0.2 K/mcL (0.0-0.6); Eosinophils % 2.5 %; Hematocrit 36.3 % (37.5-50.1); Hemoglobin 11.8 g/dL (12.9-16.9); Immature Granulocytes % 0.4 % (0-4); Lymphocytes # 2.4 K/mcL (0.6-4.6); Lymphocytes % 26.4 %; Mean Corpuscular HGB Conc 32.5 g/dL (31.6-35.5); Mean Corpuscular Volume 92.4 fL (83.0-100.0); Mean Platelet Volume 10.1 fL (9.4-12.4); Monocytes % 10.7 %; Neutrophils # 5.4 K/mcL (1.6-8.9); Platelet Count 241 K/mcL (140-400); Red Blood Count 3.93 M/mcL (4.19-5.50); Red Cell Distribution Width 13.3 % (11.5-14.5); Segmented Neutrophils % 59.5 %
[2017-12-09 04:45] LABS: Alanine Aminotransferase 11 Units/L (7-52); Albumin 3.5 g/dL (3.5-5.7); Albumin/Globulin Ratio 1.3 (1.1-2.2); Alkaline Phosphatase 91 Units/L (34-104); Aspartate Amino Transferase 12 Units/L (13-39); BUN/Creatinine Ratio 15 (6-26); Bilirubin,Total 0.8 mg/dL (0.3-1.0); Blood Urea Nitrogen 21 mg/dL (8-23); Calcium 8.9 mg/dL (8.6-10.3); Carbon Dioxide 22 mEq/L (23-29); Chloride 109 mEq/L (98-107); Globulin 2.8 g/dL (2.4-3.5); Glucose 105 mg/dL (70-105); Magnesium 1.9 mg/dL (1.6-2.6); Osmolality,Calculated 291 (280-300); Phosphorous 3.5 mg/dL (2.7-4.5); Potassium 4.3 mEq/L (3.5-5.1); Sodium 139 mEq/L (136-145); Total Protein 6.3 g/dL (6.4-8.9); eGFR For African Americans > 60 (> 60); eGFR For Non-African Americans 51 (> 60)
[2017-12-09] MEDS: (Umeclidinium Bromide [Incruse Ellipta] 62.5 MCG) IH SCH (07:47)
--- NOTE | 2017-12-09 09:18 | Internal Med Progress Note ---
Date of Encounter: 12/09/17 Time of Encounter: 09:16 - Assessment and plan (1) Dyspnea Current Visit: Yes Status: Acute Assessment and plan: 67-year-old male with past medical history of paroxysmal atrial fibrillation currently rate controlled and anticoagulated presents with three-week history of worsening exertional dyspnea. -Etiology unclear. Patient does not appear fluid overloaded on physical exam, BNP is 284. Limited echo in the ED demonstrates preserved EF of 55% with persistent mild pericardial effusion no evidence of tamponade. -Pacemaker interrogated in the ED. Atrial arrhythmias noted. -Dr. Chaudhari, EP, was consulted by ED. -We will follow-up cardiology recommendations for antiarrhythmic medication adjustments and potential cardioversion. Qualifiers: Dyspnea type: dyspnea on exertion Qualified Code(s): R06.09 - Other forms of dyspnea (2) PAF (paroxysmal atrial fibrillation) Current Visit: No Status: Chronic Assessment and plan: 1 Presently in paced rhythm -EKG afib with controlled rate on Xarelto rhythmol and metoprolol- pending cardiology recommendations NPO possible cardioversion cont tele (3) S/P cardiac pacemaker procedure Current Visit: No Status: Chronic Assessment and plan: Interrogated in the ED. Demonstrates atrial arrhythmia since 11/16/2017 -Follow-up EP recommendations. (4) CKD (chronic kidney disease) stage 3, GFR 30-59 ml/min Current Visit: No Status: Chronic Assessment and plan: Presntly at baseline-follows with Dr Bullock Avoid nephrotoxic agents and renal diet. (5) HTN (hypertension) Current Visit: No Status: Chronic Assessment and plan: Resume home medications. controlled will monitor Qualifiers: Hypertension type: essential hypertension Qualified Code(s): I10 - Essential (primary) hypertension (6) DVT prophylaxis Current Visit: Yes Status: Acute Assessment and plan: On xarelto currently. - Time Spent With Patient Total time spent is greater than 50% in coordination of care (as documented) at patient's floor/unit and/or counseling patient: - Subjective Interval history: Patient was seen and examined at bedside, denies any CP or SOB at this time. Denies any palpitations, he is NPO awaiting cardiology recommendation - Constitutional Vitals: Temp Pulse Resp BP Pulse Ox 98.5 F 62 16 115/81 98 12/09/17 07:19 12/09/17 07:19 12/09/17 07:19 12/09/17 07:19 12/09/17 07:19 General appearance: Present: cooperative, A&O X 3, pleasant, no acute distress, answers questions appropriately - Head Head exam: Present: atraumatic, normocephalic - Eye Eye exam: Present: PERRL, conjuntiva pink, sclera anicteric Pupils: Present: PERRL - Neck Neck exam general surgery: Present: supple, trachea midline. Absent: lymphadenopathy - Respiratory Respiratory exam: Present: CTAB, rales. Absent: accessory muscle use, rhonchi, wheezes - Cardiovascular Cardiovascular exam: Present: RRR, +S1, +S2. Absent: diastolic murmur, gallop, rubs, systolic murmur - GI/Abdominal GI/Abdominal exam: Present: normal bowel sounds, soft, no peritoneal signs. Absent: distended, tenderness - Extremities Exam Extremities exam: Present: warm, radial pulses palpable and symmetrical. Absent : calf tenderness, cyanotic, pedal edema - Neurological Exam Neurological exam: Present: CN II-XII intact, oriented X3, no focal deficits. Absent: pronater drift, facial droop, speech deficit - Skin Skin exam: Present: dry, intact Internal Medicine: Result - Labs CBC & Chem 7: 12/09/17 03:59 12/09/17 03:59 Labs: Short CBC 12/09/17 Range/Units 03:59 WBC 9.1 (4.3-11.1) K/mcL Hgb 11.8 L (12.9-16.9) g/dL Hct 36.3 L (37.5-50.1) % Plt Count 241 (140-400) K/mcL Neutrophils # 5.4 (1.6-8.9) K/mcL BMP 12/09/17 03:59 Sodium 139 Potassium 4.3 Chloride 109 H Carbon Dioxide 22 L BUN 21 Creatinine 1.39 H Glucose 105 Calcium 8.9 Liver Function 12/09/17 Range/Units 03:59 Total Bilirubin 0.8 (0.3-1.0) mg/dL AST 12 L (13-39) Units/L ALT 11 (7-52) Units/L Alkaline Phosphatase 91 (34-104) Units/L Albumin 3.5 (3.5-5.7) g/dL - ABG Interpretation ABG results: PT/INR, D-dimer PT 18.7 Seconds (9.4-12.1) H 12/08/17 11:15 Consult Discharge Plan - Plan Referrals: Ozzy Chaudhari MD [Partnered Physician] - 12/16/17 8:45 am Naveed Gutierrez MD [Partnered Physician] - 01/18/18 2:00 pm Hardik Lantigua MD [Primary Care Provider] -
[2017-12-09] MEDS: Metoprolol XL (24 HR) Succ 50 MG TAB.ER.24H PO SCH (09:24)
[2017-12-09] MEDS: Aspirin Enteric Coated 81 MG Tablet PO SCH (09:24)
[2017-12-09] MEDS: amLODIPine 5 MG TABLET PO SCH (09:25)
[2017-12-09] MEDS: *HR* Rivaroxaban 10 MG TABLET PO SCH (09:27)
--- NOTE | 2017-12-09 12:28 | Cardiology Consult Note ---
<Joseline Eldridge - Last Filed: 12/09/17 12:51> Date of Encounter: 12/09/17 Time of Encounter: 10:00 Assessment and Plan (1) Atrial fibrillation Current Visit: Yes Status: Acute Per cardiology: -Known history of PAF. -Reports worsening shortness of breath. -Device check in office with hyacinthbasilio x3 weeks, possibly correlation with symptoms. -Of note, on beta [place], rate controlled. -Takes rhythmol 150mg BID, not on recommended dose of rhythmol 150 Q8 hours. -On xarelto for anticoagulation. Per patient, he is unsure if he has missed doses or not. -Per discussion with Dr.John Chaudhari, recommend rhythmol 150mg Q8 hours. -Recommend SILVINO/DCCV. -Patient educated on need for xarelto uninterrupted for at least 30 days post cardioversion. -Further recommendations pending SILVINO/DCCV. Qualifiers: Atrial fibrillation type: paroxysmal Qualified Code(s): I48.0 - Paroxysmal atrial fibrillation Discussion w patient/family: The assessment and plan as outlined above was discussed with the patient who expressed understanding and agreement. All questions were answered. Thank you for involving us in the care of your patient. Please call with any questions. Discussed and reviewed with Dr.John Chaudhari. History of Present Illness Consult date: 12/08/17 Requesting physician: Yunier Serna Consult reason: hyacinthfib, shortness of breath Chief complaint: shortness of breath History of present illness: Mr. Reyna is a 67 year old male with a relevant past medical history of HTN, HLD , PAF, pacemaker, recent pericarditis. Patient presented to [facility] after recommendations by his primary [employer] worker for worsening shortness of breath. Patient was recommended to come to ER. Patient states that he has had progressive shortness of breath over the past couple of years. However states has noticed severe worsening shortness of breath with exertion over the past couple of weeks. Denies chest pain. Past Med Surg Social Fam HX - Past Medical History Attestation: Yes The following information was validated with the patient. Source: patient, old records reviewed Medical history: atrial fibrillation, hyperlipidemia, hypertension, renal disease, other Psychiatric history: no psych history - Past Surgical History Surgical History: appendectomy - Social History Smoking Status: Former smoker Smokeless Tobacco Status: No Alcohol use: occasionally Drug use: none - Family History Mother Living Status: Hx Family Cardiac Disorders: Yes (afib) Hx Family Neurologic Disorders: Yes (dementia) Father Living Status: Hx Family Cardiac Disorders: Yes (CABG) Hx Family Cancer: Yes (colon) Grandfather Hx Family Cardiac Disorders: Yes (OK) Hx Family Cancer: Yes (colon) Medications and Allergies Aspirin [Lo-Dose Aspirin EC] 81 mg PO DAILY 09/01/17 [History] Atorvastatin [Lipitor] 10 mg PO HS 09/01/17 [History] Propafenone [Rhythmol] 150 mg PO BID 09/01/17 [History] Rivaroxaban [Xarelto] 20 mg PO DAILY 09/01/17 [History] amLODIPine [Norvasc] 5 mg PO DAILY 09/01/17 [History] Metoprolol Succinate [Toprol Xl] 100 mg PO DAILY #30 tab.er.24h 11/18/17 [Rx] Umeclidinium [place] [Incruse Ellipta] 62.5 mcg IH DAILY 12/08/17 [History] 3 Allergy/AdvReac Type Severity Reaction Status Date / Time No Known Allergies Allergy Verified 12/08/17 12:09 All Systems Review: The remainder of the systems were reviewed and are negative - Cardiovascular Cardiovascular: as per HPI, dyspnea on exertion Physical Examination Vital Signs, Last 4 Hours Temp Pulse Resp BP Pulse Ox 12/09/17 10:56 98.6 F 67 15 116/75 93 General: Conversant, No Apparent Distress HEENT: Atraumatic, Normocephaly, Mucus Membranes Moist Neck: No JVD, Normal carotid pulses Cardiac: Normal S1 and S2, No Murmur, Other (Irregularly irregular) Lungs: Normal Breath Sounds, No Wheeze, Rales, Rhonchi Neuro: Alert and responsive, No focal deficits noted Abdomen: Soft, Non-Tender Skin: No rashes noted on visualized skin Musculoskeletal: No Chest Wall Tenderness Extremities: No Clubbing, No Cyanosis, No Edema, Normal Pulses Results 12/09/17 03:59 12/09/17 03:59 Lab Results Impressions Chest X-Ray 12/08/17 10:19 IMPRESSION: Enlarged cardiac silhouette since prior exams suspicious for pericardial effusion. No evidence of edema or pneumonia. D/ / 12/08/2017 11:20:54 Paul Ty MD / kenn Interpreting Provider: Paul Ty MD Active Medications Acetaminophen (Tylenol) 650 mg PO Q6HR PRN PRN Reason: Mild Pain/Fever Stop: 06/09/18 21:21 Amlodipine Besylate (Norvasc) 5 mg PO DAILY TATUM PRN Reason: Protocol Stop: 06/10/18 09:01 Last Admin: 12/09/17 09:25 Dose: 5 mg Aspirin (Aspirin Ec) 81 mg PO DAILY [facility] Stop: 06/10/18 09:01 Last Admin: 12/09/17 09:24 Dose: 81 mg Atorvastatin Calcium (Lipitor) 10 mg PO HS [facility] Stop: 06/10/18 21:01 Metoprolol Succinate (Toprol Xl) 100 mg PO DAILY [facility] Stop: 06/10/18 09:01 Last Admin: 12/09/17 09:24 Dose: 100 mg Naloxone HCl (Narcan) 0.4 mg IVP Q2MIN PRN PRN Reason: SEE COMMENTS Stop: 06/09/18 20:35 Pharmacy Profile Note (Patient Taking Own Medication) 0 each IH DAILYR [facility] Stop: 06/10/18 10:01 Last Admin: 12/09/17 07:47 Dose: Not Given Propafenone HCl (Rhythmol) 150 mg PO TID [facility] Stop: 06/10/18 15:01 Rivaroxaban (Xarelto) 20 mg PO DAILY [facility] Stop: 06/10/18 09:01 Last Admin: 12/09/17 09:27 Dose: 20 mg Laboratory Tests 12/08/17 12/09/17 12/09/17 11:15 03:59 03:59 Hgb 11.8 L Creatinine 1.39 H Troponin I < 0.03 - Imaging and Cardiology Chest Xray: report reviewed Echo: report reviewed - EKG Interpretation EKG results cardiology: personally reviewed (ECG with a.fib.), other (Telemetry reviewed with average HR previous 12 hours noted to be 68, a.fib, intermittent paced rhythm.) Consult Discharge Plan - Plan Referrals: Ozzy Chaudhari MD [Partnered Physician] - 12/16/17 8:45 am Naveed Gutierrez MD [Partnered Physician] - 01/18/18 2:00 pm Hardik Lantigua MD [Primary Care Provider] - <WatsonOzzy Van - Last Filed: 12/09/17 14:50> Date of Encounter: 12/09/17 - Attending Attestation I have personally performed a face to face evaluation on this patient. I have reviewed and agree with the care plan. History and Exam by me shows: Presents with symptomatic AF of about 3 wks duration. Pacer check otherwise normal. Would increase rythmol and cardiovert today. Assessment and Plan Discussion w patient/family: The assessment and plan as outlined above was discussed with the patient and/or family members who expressed understanding and agreement. All questions were answered. Thank you for involving us in the care of your patient. Please call with any questions. History of Present Illness History of present illness: Mr. Reyna is a 67 year old male All Systems Review: The remainder of the systems were reviewed and are negative Physical Examination Vital Signs, Last 4 Hours Temp Pulse Resp BP Pulse Ox 12/09/17 13:34 97.7 F 64 12 122/78 97 12/09/17 10:56 98.6 F 67 15 116/75 93 Results 12/09/17 03:59 12/09/17 03:59 Lab Results 12/09/17 12/09/17 03:59 03:59 WBC 9.1 Hgb 11.8 L Hct 36.3 L Plt Count 241 Sodium 139 Potassium 4.3 Chloride 109 H Carbon Dioxide 22 L BUN 21 Creatinine 1.39 H Glucose 105 Calcium 8.9 Magnesium 1.9 Total Bilirubin 0.8 AST 12 L ALT 11 Alkaline Phosphatase 91
[2017-12-09] MEDS ORDERED: Lidocaine Viscous Oral Soln 15 ML SOLUTION MM PRN (13:01)
[2017-12-09] MEDS ORDERED: *HR* Midazolam HCl 2 MG/2 ML VIAL IVP PRN (13:02)
[2017-12-09] MEDS ORDERED: Tetracaine/Benzocaine/Butamben 200MG/SPRAY (100SPY/BOT) MM ONE (13:02)
[2017-12-09] MEDS ORDERED: 0.9 % Sodium Chloride 500 ML IVC ONE (13:02)
[2017-12-09] MEDS ORDERED: *HR* Midazolam HCl 5 MG/5 ML VIAL IVP ONE ×3 (13:42→13:43)
[2017-12-09] MEDS: *HR* FentaNYL (PF) 100 MCG/2 ML VIAL IVP PRN ×3 (14:15→14:28)
--- NOTE | 2017-12-09 17:32 | Event Note ---
Date of Encounter: 12/09/17 Time of Encounter: 17:31 - Cardiology Event Note S/p successful SILVINO/DCCV. Cardiology will sign off and will follow in outpatient setting. Follow up set.
[2017-12-10 05:51] LABS: Basophils % 0.4 %; Eosinophils # 0.2 K/mcL (0.0-0.6); Eosinophils % 2.3 %; Hematocrit 35.4 % (37.5-50.1); Hemoglobin 11.4 g/dL (12.9-16.9); Immature Granulocytes % 0.4 % (0-4); Lymphocytes # 2.1 K/mcL (0.6-4.6); Lymphocytes % 25.8 %; Mean Corpuscular HGB Conc 32.2 g/dL (31.6-35.5); Mean Corpuscular Hemoglobin 30.1 pg (28.0-33.3); Mean Corpuscular Volume 93.4 fL (83.0-100.0); Mean Platelet Volume 10.4 fL (9.4-12.4); Monocytes # 0.8 K/mcL (0.0-1.3); Platelet Count 240 K/mcL (140-400); Red Blood Count 3.79 M/mcL (4.19-5.50); Red Cell Distribution Width 13.7 % (11.5-14.5); Segmented Neutrophils % 61.1 %
[2017-12-10 06:08] LABS: Calcium 8.9 mg/dL (8.6-10.3)
[2017-12-10] MEDS ORDERED: 0.9 % Sodium Chloride 1,000 ML IVC SCH (08:00)
[2017-12-10] MEDS: (Umeclidinium Bromide [Incruse Ellipta] 62.5 MCG) IH SCH (08:35)
[2017-12-10] MEDS: Aspirin Enteric Coated 81 MG Tablet PO SCH (08:47)
[2017-12-10] MEDS: *HR* Rivaroxaban 10 MG TABLET PO SCH (08:47)
[2017-12-10] MEDS: Metoprolol XL (24 HR) Succ 50 MG TAB.ER.24H PO SCH (08:47)
[2017-12-10] MEDS: amLODIPine 5 MG TABLET PO SCH (08:47)
[2017-12-10] MEDS ORDERED: 0.9 % Sodium Chloride 500 ML IVC SCH (09:15)
--- NOTE | 2017-12-10 11:06 | Discharge Summary ---
- NOTES TO OUTPATIENT PROVIDER Notes to Outpatient Provider: Rhythmol 150mg every 8 hrs- underwent cardioversion successfully converted back to SR Orders not resulted at time of discharge: Pending orders 12/10/17 12:00 Chem 7 [Basic Metabolic Panel] Routine Date of Encounter: 12/10/17 Time of Encounter: 11:04 - Discharge Diagnosis (1) Dyspnea Priority: Primary Status: Acute Qualifiers: Dyspnea type: dyspnea on exertion Qualified Code(s): R06.09 - Other forms of dyspnea (2) PAF (paroxysmal atrial fibrillation) Priority: Secondary Status: Chronic (3) S/P cardiac pacemaker procedure Priority: Secondary Status: Chronic (4) CKD (chronic kidney disease) stage 3, GFR 30-59 ml/min Priority: Secondary Status: Chronic (5) HTN (hypertension) Priority: Secondary Status: Chronic Qualifiers: Hypertension type: essential hypertension Qualified Code(s): I10 - Essential (primary) hypertension Hospital course: Mr. Reyna is a 67 year old male PMH of HTN HLD PAF CKD pacemaker recent pericarditis. 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 Patient is chronically SOB however noticed sever worsening of SOB with exertion over the past couple of weeks. No CP or palpitations. He was in afib with rate control. He is normally on rhythmol and was taking it BID and is SC on Xarelto He was seen by cardiology and underwent SILVINO and DCCV and successfully converted back to SR. His rhythmol was increased to TID. This am he was noted to have a slight elevation in creatinine from baseline . He was given IVF and creatinine improved. I advised patient to follow with cardiology and PCP I also gave him a prescription for rhythmol 150 TID and advised to take as prescribed. I answered patient's questions. He is hemodynamically stable and ready for discharge Discharge discussed with: patient - Time Spent with Patient Total time spent providing and/or coordinating discharge services: - Discharge Medications Prescriptions: Propafenone [Rhythmol] 150 mg PO TID #90 tablet Home Medications: Aspirin [Lo-Dose Aspirin EC] 81 mg PO DAILY 09/01/17 [History] Atorvastatin [Lipitor] 10 mg PO HS 09/01/17 [History] Rivaroxaban [Xarelto] 20 mg PO DAILY 09/01/17 [History] amLODIPine [Norvasc] 5 mg PO DAILY 09/01/17 [History] Metoprolol Succinate [Toprol Xl] 100 mg PO DAILY #30 tab.er.24h 11/18/17 [Rx] Umeclidinium [place] [Incruse Ellipta] 62.5 mcg IH DAILY 12/08/17 [History] Propafenone [Rhythmol] 150 mg PO TID #90 tablet 12/10/17 [Rx] Allergies/Adverse Reactions: 3 Allergy/AdvReac Type Severity Reaction Status Date / Time No Known Allergies Allergy Verified 12/08/17 12:09 Date of admission: 12/09/17 15:54 Primary care physician: Hardik Lantigua MD Discharging clinician: Alondra Cook Anticipated date of discharge: 12/10/17 - Constitutional Vitals: Temp Pulse Resp BP Pulse Ox 98.9 F 66 16 113/75 95 12/10/17 07:58 12/10/17 07:58 12/10/17 07:58 12/10/17 07:58 12/10/17 07:58 General appearance: Present: cooperative, A&O X 3, pleasant, no acute distress, answers questions appropriately - Head Head exam: Present: atraumatic, normocephalic - Eye Eye exam: Present: PERRL, conjuntiva pink, sclera anicteric Pupils: Present: PERRL - Neck Neck exam general surgery: Present: supple, trachea midline. Absent: lymphadenopathy - Respiratory Respiratory exam: Present: CTAB. Absent: accessory muscle use, rales, rhonchi, wheezes - Cardiovascular Cardiovascular exam: Present: RRR, +S1, +S2. Absent: diastolic murmur, gallop, rubs, systolic murmur - GI/Abdominal GI/Abdominal exam: Present: normal bowel sounds, soft, no peritoneal signs. Absent: distended, tenderness - Extremities Exam Extremities exam: Present: warm, radial pulses palpable and symmetrical. Absent : calf tenderness, cyanotic, pedal edema - Neurological Exam Neurological exam: Present: CN II-XII intact, oriented X3, no focal deficits. Absent: pronater drift, facial droop, speech deficit - Skin Skin exam: Present: dry, intact - Patient Status Disposition: Home, Self-Care Condition: Good Functional capacity at discharge: independent ambulation Overall status at discharge: patient is back to baseline - Discharge Instructions Instructions: Atrial Fibrillation (DC) Follow Up With: Ozzy Chaudhari MD [Partnered Physician] - 12/16/17 8:45 am Naveed Gutierrez MD [Partnered Physician] - 01/18/18 2:00 pm Hardik Lantigua MD [Primary Care Provider] - Forms: ED Satisfaction Letter - Diet and Activity Activity: increase activity as tolerated Diet: advance to your usual diet
[2017-12-10 11:08] VITALS: BP 105/65
[2017-12-10 12:40] LABS: Calcium 8.9 mg/dL (8.6-10.3); Potassium 4.2 mEq/L (3.5-5.1)
--- NOTE | 2017-12-10 15:57 | Electrocardiograph Report ---
[place] [address] Test Date: 2017-12-08 Pat Name: Roc Reyna Department: 103 Room: 3B16 Gender: M Collections Analyst: : 1950 Requested By: Yunier Serna Order Number: [id number] Reading MD: Lexis Chaudhari Measurements Intervals [place] Rate: 71 P: AL: 0 QRS: -60 QRSD: 160 T: 108 QT: 444 QTc: 467 Interpretive Statements ATRIAL FIBRILLATION INTRAVENTRICULAR CONDUCTION DELAY [130+ ms QRS DURATION] ANTERIOR MYOCARDIAL INFARCTION [40+ ms Q WAVE AND/OR ST/T ABNORMALITY IN V3/V4], OF INDETERMINATE AGE INFERIOR MYOCARDIAL INFARCTION [40+ ms Q WAVE AND/OR ST/T ABNORMALITY IN II/aVF], PROBABLY OLD Electronically Signed On 12-10-2017 15:56:17 EDT by Lexis Chaudhari
--- NOTE | 2017-12-13 15:51 | Electrocardiograph Report ---
[address] [address] Test Date: 2017-12-09 Pat Name: Roc Reyna Department: 113 Room: 3B16 Gender: M Microbiology Coordinator: : 1950 Requested By: Soren Bass Order Number: [id number] Reading MD: Soren Bass Measurements Intervals [place] Rate: 61 P: RI: 0 QRS: -68 QRSD: 218 T: 91 QT: 519 QTc: 523 Interpretive Statements ELECTRONIC VENTRICULAR PACEMAKER ABNORMAL RHYTHM ECG Electronically Signed On 12-13-2017 15:50:01 EDT by Soren Bass
--- NOTE | 2017-12-13 15:52 | Electrocardiograph Report ---
[address] [address] Test Date: 2017-12-09 Pat Name: Roc Reyna Department: 101 Room: 3B16 Gender: M Lan Engineer: TIANA : 1950 Requested By: Edouard Whitmore Order Number: [id number] Reading MD: Soren Bass Measurements Intervals [place] Rate: 79 P: 151 FL: 295 QRS: -66 QRSD: 160 T: 97 QT: 445 QTc: 480 Interpretive Statements ELECTRONIC ATRIAL PACEMAKER ELECTRONIC VENTRICULAR PACEMAKER ABNORMAL RHYTHM ECG Electronically Signed On 12-13-2017 15:50:16 EDT by Soren Bass
== END 2017-12-10 13:20 | disposition home or self-care (01) | DRG 310 ==
LOC: EMEROO 09:59 → 3BNU 09:59
PROVIDERS: ADMIT Student in an Organized Health Care Education/Training Program; ATTEND Student in an Organized Health Care Education/Training Program